=== PATIENT | female | born 1950 | race Caucasian/White ===

== ENCOUNTER 2017-06-14 17:13 | Inpatient (IN) ==
[2017-06-14] MEDS ORDERED: Albuterol 2.5 MG/3 ML NEBULIZER IH ONE (17:30)
[2017-06-14] MEDS ORDERED: methylPREDNISolone 125 MG/2 ML VIAL IVP ONE (17:30)
--- NOTE | 2017-06-14 17:37 | Emergency Department Note ---
Disposition Clinical Impression: Anemia, Congestive heart failure Disposition: Admitted As Inpatient Condition: Fair SOB HPI - General Chief Complaint: ED Shortness of Breath/Dyspnea Stated Complaint: dyspnea Time Seen by Provider: 06/14/17 17:22 Source: patient, EMS Mode of arrival: EMS Limitations: no limitations Nursing Notes Reviewed: Yes Vital Signs Reviewed: Yes - History of Present Illness 66-year-old female since for evaluation of shortness of breath. Patient over the last 2-3 weeks is developing increasing shortness of breath. She has had a productive cough of green sputum. She complains of mild anterior chest pain. She denies any fever or chills. She states no leg swelling. She does use a breathing machine at home. She does not require oxygen. She does not require BiPAP or CPAP. She is unsure of most of her medical problems or her medications. - Related Data Home Medications Medication Instructions Recorded Confirmed Albuterol Neb [AccuNeb] 0.63 mg IH Q4HR PRN 12/03/15 06/14/17 Albuterol Sulfate [Proair Hfa] 2 puff IH Q4HR PRN 12/03/15 06/14/17 Baclofen 10 mg PO TID PRN 12/03/15 06/14/17 Folic Acid 1 mg PO DAILY 12/03/15 06/14/17 Furosemide [Lasix] 40 mg PO DAILY PRN 12/03/15 06/14/17 Gabapentin [Neurontin] 600 mg PO HS 12/03/15 06/14/17 Insulin Glargine,Hum.rec.anlog 100 unit SQ BID 12/03/15 06/14/17 [Lantus Solostar] Metoprolol Tartrate [Lopressor] 12.5 mg PO BID 12/03/15 06/14/17 Nitroglycerin [Nitrostat] 0.4 mg SL PRN PRN 12/03/15 06/14/17 Omeprazole [PriLOSEC] 20 mg PO DAILY 12/03/15 06/14/17 metFORMIN [Glucophage] 1,000 mg PO BIDWM 12/03/15 06/14/17 Budesonide/Formoterol 160/4.5 2 puff IH BIDR 12/04/15 06/14/17 [Symbicort 160/4.5] Docusate [Colace] 100 mg PO QID PRN 03/24/16 06/14/17 Insulin LISPRO [HumaLOG] 0 units SQ TIDAC 03/24/16 06/14/17 Ferrous Gluconate 324 mg PO BID 06/14/17 06/14/17 Lisinopril [Zestril] 20 mg PO DAILY 06/14/17 06/14/17 Magnesium Oxide 500 mg PO DAILY 06/14/17 06/14/17 Previous Rx's Medication Instructions Recorded Diltiazem CD (24hr) [Cardizem CD] 180 mg PO BID cap.er.24h 12/09/15 Ergocalciferol (VITAMIN D2) 50,000 unit PO QWEEK capsule 12/09/15 [Drisdol (50,000 Unit)] Apixaban [Eliquis] 5 mg PO BID #60 tablet 03/28/16 Allergies Allergy/AdvReac Type Severity Reaction Status Date / Time ciprofloxacin Allergy Hives Verified 06/14/17 17:42 iodine Allergy See Verified 06/14/17 17:42 Comments promethazine [From Phenergan] Allergy See Verified 06/14/17 17:42 Comments Sulfa (Sulfonamide Allergy See Verified 06/14/17 17:42 Antibiotics) Comments walnut Allergy See Verified 06/14/17 17:42 Comments seafood Allergy See Uncoded 12/03/15 15:44 Comments Review of Systems: Constitutional: [Negative for fever and chills.] HENT: [Negative for congestion.] Eyes: [Negative for discharge.] Respiratory: See history of present illness Cardiovascular: See history of present illness Gastrointestinal: [Negative for nausea, vomiting, abdominal pain and diarrhea.] Endocrine: [Negative for excessive thirst,urination] Genitourinary: [Negative for dysuria and frequency.] Musculoskeletal: [Negative for myalgias and arthralgias.] Skin: [Negative for rash.] Neurological: [Negative for dizziness, localized weakness and headaches.] Psychiatric/Behavioral: [Negative for nervous/anxious.] All other systems reviewed and are negative. Past Medical History - Past Medical History Attestation: Yes The following information was validated with the patient. 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 . The patient appears symptomatic, mild to moderately ill. HENT: Head: Normocephalic and atraumatic. Right Ear: External ear normal. Left Ear: External ear normal. Nose: Nose normal. Mouth/Throat: Oropharynx is clear and mucous membranes show mild dehydration Eyes: Conjunctivae and EOM are normal. Pupils are equal, round, and reactive to light. Right eye exhibits [no] discharge. Left eye exhibits [no] discharge. Neck: Trachea is midline, normal range of motion and [phonation normal]. Neck supple. Cardiovascular: [Regular rhythm], S1 normal, S2 normal, normal heart sounds and intact distal pulses. Exam reveals no gallop and no friction rub. No murmur heard. [Capillary refill is brisk.] [Peripheral pulses are 2+] Pulmonary/Chest: Effort increased No stridor. Mild tachypnea. Mild respiratory distress. There are [no] decreased breath sounds. Diffuse rhonchi heard throughout all lung valle with few faint wheezes. There are no obvious rales. Abdominal: Soft. [Bowel sounds are normal]. There exhibits [no] distension and [no] mass. There is no hepatosplenomegaly. There is [no tenderness], [no] CVA tenderness. There is [no rigidity, no rebound, no guarding]. Musculoskeletal: Normal range of motion of uninvolved extremities. There exhibits [no edema]. [ ] Neurological: Patient is alert. Patient displays no atrophy and no tremor. No cranial nerve deficit and exhibits normal muscle tone. Coordination normal grossly. Skin: Skin is warm and dry. No erythema. No rash noted. Psychiatric: Patient has a depressed mood and affect. Course Course Narrative: Patient feels improved after second breathing treatment. Patient was discovered to have significant anemia. Chest x-ray shows mild heart failure. Discussed the case with Dr. Najera her primary care physician and he agrees with admission for IV blood transfusion Vital Signs Temperature 99.0 F 06/14/17 17:25 Pulse Rate 95 06/14/17 17:25 Respiratory Rate 26 06/14/17 17:25 Blood Pressure 128/46 06/14/17 17:25 O2 Sat by Pulse Oximetry 92 06/14/17 17:25 Temperature 99.0 F 06/14/17 17:25 Pulse Rate 97 06/14/17 18:40 Respiratory Rate 24 06/14/17 18:40 Blood Pressure 144/70 06/14/17 18:40 O2 Sat by Pulse Oximetry 98 06/14/17 18:40 Oxygen Delivery Oxygen Delivery Nasal Cannula Shortness of Breath/Dyspnea - MDM Narrative Medical decision making narrative: PULMONARY EMBOLISM, PULMONARY EDEMA, PNEUMONIA, PNEUMOTHORAX, STATUS ASTHMATICUS , ACUTE RESPIRATORY FAILURE, PLEURAL EFFUSION, HEMOTHORAX, OR ACUTE CORONARY SYNDROME. - Lab Data Lab results reviewed: Yes I reviewed the patient's lab results. Result diagrams: 06/14/17 17:30 06/14/17 17:30 Lab Results 06/14/17 06/14/17 06/14/17 Range/Units 17:25 17:30 17:30 WBC 16.4 H (4.3-11.1) K/mcL RBC 2.23 L (3.82-4.97) M/mcL Hgb 5.4 L* (11.5-15.4) g/dL Hct 19.8 L (35.3-44.9) % MCV 88.8 (83.0-100.0) fL MCH 24.2 L (28.0-33.3) pg MCHC 27.3 L (31.6-35.5) g/dL RDW 19.4 H (11.5-14.5) % Plt Count 221 (140-400) K/mcL MPV 12.9 H (9.4-12.4) fL Immature Gran % 1.1 (0-4) % Seg Neutrophils % 86.2 % Lymphocytes % 5.7 % Monocytes % 5.6 % Eosinophils % 1.1 % Basophils % 0.3 % Neutrophils # 14.1 H (1.6-8.9) K/mcL Lymphocytes # 0.9 (0.6-4.6) K/mcL Monocytes # 0.9 (0.0-1.3) K/mcL Eosinophils # 0.2 (0.0-0.6) K/mcL Basophils # 0.1 (0.0-0.2) K/mcL Nucleated RBCs/100 WBC 0.2 H (0) /100 WBC PT 21.0 H (9.4-12.1) Seconds INR 1.9 APTT 33.5 (26.0-36.0) Seconds VBG pH (7.32-7.42) pH Units VBG pCO2 (41-51) mmHg VBG pO2 (25-50) mmHg VBG HCO3 (21-27) mEq/L Sodium (136-145) mEq/L Potassium (3.5-4.5) mEq/L Chloride (98-109) mEq/L Carbon Dioxide (19-29) mEq/L BUN (7-20) mg/dL Creatinine (0.57-1.11) mg/dL Est GFR ( Amer) (> 60) Est GFR (Non-Af Amer) (> 60) BUN/Creatinine Ratio (6-26) Glucose (70-99) mg/dL POC Glucose 279 H (58-89) Calculated Osmolality (280-300) Lactic Acid (0.5-2.2) mmol/L Calcium (8.6-10.8) mg/dL Total Bilirubin (0.2-1.2) mg/dL Direct Bilirubin (0.0-0.5) mg/dL Indirect Bilirubin (0.0-1.2) mg/dL AST (5-34) Units/L ALT (0-55) Units/L Alkaline Phosphatase (38-126) Units/L Troponin I (0-0.03) ng/mL B-Natriuretic Peptide (0-100) pg/mL Serum Total Protein (6.0-8.3) g/dL Albumin (3.5-5.0) g/dL Globulin (2.4-3.5) g/dL Albumin/Globulin Ratio (1.1-2.2) 06/14/17 06/14/17 06/14/17 Range/Units 17:30 17:30 17:30 WBC (4.3-11.1) K/mcL RBC (3.82-4.97) M/mcL Hgb (11.5-15.4) g/dL Hct (35.3-44.9) % MCV (83.0-100.0) fL MCH (28.0-33.3) pg MCHC (31.6-35.5) g/dL RDW (11.5-14.5) % Plt Count (140-400) K/mcL MPV (9.4-12.4) fL Immature Gran % (0-4) % Seg Neutrophils % % Lymphocytes % % Monocytes % % Eosinophils % % Basophils % % Neutrophils # (1.6-8.9) K/mcL Lymphocytes # (0.6-4.6) K/mcL Monocytes # (0.0-1.3) K/mcL Eosinophils # (0.0-0.6) K/mcL Basophils # (0.0-0.2) K/mcL Nucleated RBCs/100 WBC (0) /100 WBC PT (9.4-12.1) Seconds INR APTT (26.0-36.0) Seconds VBG pH (7.32-7.42) pH Units VBG pCO2 (41-51) mmHg VBG pO2 (25-50) mmHg VBG HCO3 (21-27) mEq/L Sodium 136 (136-145) mEq/L Potassium 4.5 (3.5-4.5) mEq/L Chloride 101 (98-109) mEq/L Carbon Dioxide 27 (19-29) mEq/L BUN 18 (7-20) mg/dL Creatinine 1.03 (0.57-1.11) mg/dL Est GFR ( Amer) > 60 (> 60) Est GFR (Non-Af Amer) 53 L (> 60) BUN/Creatinine Ratio 17 (6-26) Glucose 268 H (70-99) mg/dL POC Glucose (58-89) Calculated Osmolality 293 (280-300) Lactic Acid 3.8 H (0.5-2.2) mmol/L Calcium 8.9 (8.6-10.8) mg/dL Total Bilirubin 1.0 (0.2-1.2) mg/dL Direct Bilirubin 0.5 (0.0-0.5) mg/dL Indirect Bilirubin 0.5 (0.0-1.2) mg/dL AST 19 (5-34) Units/L ALT 13 (0-55) Units/L Alkaline Phosphatase 81 (38-126) Units/L Troponin I 0.00 (0-0.03) ng/mL B-Natriuretic Peptide (0-100) pg/mL Serum Total Protein 8.0 (6.0-8.3) g/dL Albumin 3.0 L (3.5-5.0) g/dL Globulin 5.0 H (2.4-3.5) g/dL Albumin/Globulin Ratio 0.6 L (1.1-2.2) 06/14/17 06/14/17 Range/Units 17:30 17:59 WBC (4.3-11.1) K/mcL RBC (3.82-4.97) M/mcL Hgb (11.5-15.4) g/dL Hct (35.3-44.9) % MCV (83.0-100.0) fL MCH (28.0-33.3) pg MCHC (31.6-35.5) g/dL RDW (11.5-14.5) % Plt Count (140-400) K/mcL MPV (9.4-12.4) fL Immature Gran % (0-4) % Seg Neutrophils % % Lymphocytes % % Monocytes % % Eosinophils % % Basophils % % Neutrophils # (1.6-8.9) K/mcL Lymphocytes # (0.6-4.6) K/mcL Monocytes # (0.0-1.3) K/mcL Eosinophils # (0.0-0.6) K/mcL Basophils # (0.0-0.2) K/mcL Nucleated RBCs/100 WBC (0) /100 WBC PT (9.4-12.1) Seconds INR APTT (26.0-36.0) Seconds VBG pH 7.45 H (7.32-7.42) pH Units VBG pCO2 33 L (41-51) mmHg VBG pO2 35 (25-50) mmHg VBG HCO3 23 (21-27) mEq/L Sodium (136-145) mEq/L Potassium (3.5-4.5) mEq/L Chloride (98-109) mEq/L Carbon Dioxide (19-29) mEq/L BUN (7-20) mg/dL Creatinine (0.57-1.11) mg/dL Est GFR ( Amer) (> 60) Est GFR (Non-Af Amer) (> 60) BUN/Creatinine Ratio (6-26) Glucose (70-99) mg/dL POC Glucose (58-89) Calculated Osmolality (280-300) Lactic Acid (0.5-2.2) mmol/L Calcium (8.6-10.8) mg/dL Total Bilirubin (0.2-1.2) mg/dL Direct Bilirubin (0.0-0.5) mg/dL Indirect Bilirubin (0.0-1.2) mg/dL AST (5-34) Units/L ALT (0-55) Units/L Alkaline Phosphatase (38-126) Units/L Troponin I (0-0.03) ng/mL B-Natriuretic Peptide 373 H (0-100) pg/mL Serum Total Protein (6.0-8.3) g/dL Albumin (3.5-5.0) g/dL Globulin (2.4-3.5) g/dL Albumin/Globulin Ratio (1.1-2.2) - Radiology Data Radiology results reviewed: Yes I reviewed the patient's radiology results. XR/XR chest 1V portable IMPRESSION: Cardiomegaly with findings of acute congestive heart failure. - EKG Data EKG attestation: Yes I reviewed and interpreted this EKG. EKG shows normal: Reports: sinus rhythm, axis, intervals, QRS complexes, ST-T waves Rate: Reports: tachycardia
[2017-06-14 17:43] LABS: Basophils # 0.1 K/mcL (0.0-0.2); Basophils % 0.3 %; Eosinophils # 0.2 K/mcL (0.0-0.6); Eosinophils % 1.1 %; Hematocrit 19.8 % (35.3-44.9); Immature Granulocytes % 1.1 % (0-4); Lymphocytes # 0.9 K/mcL (0.6-4.6); Lymphocytes % 5.7 %; Mean Corpuscular HGB Conc 27.3 g/dL (31.6-35.5); Mean Corpuscular Hemoglobin 24.2 pg (28.0-33.3); Mean Corpuscular Volume 88.8 fL (83.0-100.0); Mean Platelet Volume 12.9 fL (9.4-12.4); Monocytes # 0.9 K/mcL (0.0-1.3); Monocytes % 5.6 %; Neutrophils # 14.1 K/mcL (1.6-8.9); Nucleated Red Blood Cells 0.2 /100 WBC (0); Platelet Count 221 K/mcL (140-400); Red Blood Count 2.23 M/mcL (3.82-4.97); Red Cell Distribution Width 19.4 % (11.5-14.5); Segmented Neutrophils % 86.2 %
[2017-06-14 17:45] LABS: Hemoglobin 5.4 g/dL (11.5-15.4)
[2017-06-14 17:56] LABS: INR 1.9
[2017-06-14 17:58] LABS: Activated Partial Thrombo Time 33.5 Seconds (26.0-36.0); Alanine Aminotransferase 13 Units/L (0-55); Albumin/Globulin Ratio 0.6 (1.1-2.2); Alkaline Phosphatase 81 Units/L (38-126); Aspartate Amino Transferase 19 Units/L (5-34); BUN/Creatinine Ratio 17 (6-26); Bilirubin,Direct 0.5 mg/dL (0.0-0.5); Bilirubin,Indirect 0.5 mg/dL (0.0-1.2); Blood Urea Nitrogen 18 mg/dL (7-20); Calcium 8.9 mg/dL (8.6-10.8); Carbon Dioxide 27 mEq/L (19-29); Chloride 101 mEq/L (98-109); Glucose 268 mg/dL (70-99); Osmolality,Calculated 293 (280-300); Potassium 4.5 mEq/L (3.5-4.5); Sodium 136 mEq/L (136-145); eGFR For African Americans > 60 (> 60); eGFR For Non-African Americans 53 (> 60)
[2017-06-14 18:17] LABS: VBG HCO3 23 mEq/L (21-27); VBG PCO2 33 mmHg (41-51); VBG PH 7.45 pH Units (7.32-7.42); VBG PO2 35 mmHg (25-50)
[2017-06-14] MEDS ORDERED: Dextrose Gel 15 GM PO PRN ×2 (19:50)
[2017-06-14] MEDS ORDERED: Baclofen 10 MG TABLET PO PRN (19:50)
[2017-06-14] MEDS ORDERED: Albuterol Neb 0.63 MG/3 ML VIAL IH PRN (19:50)
[2017-06-14] MEDS ORDERED: D5% in Water 1,000 ML IVC PRN (19:50)
[2017-06-14] MEDS ORDERED: Naloxone 0.4 MG/ML INJ IVP PRN (19:50)
[2017-06-14] MEDS ORDERED: Furosemide 40 MG TABLET PO PRN (19:50)
[2017-06-14] MEDS ORDERED: cefTRIAXone 1,000 MG in Water for inj. (sterile) 10 ML IVPB ONE (19:56)
[2017-06-14] MEDS ORDERED: Insulin DETEMIR 100 UNIT/ML X5UNITS SQ SCH (21:00)
[2017-06-14] MEDS ORDERED: Diltiazem CD (24hr) 180 MG CAPSULE PO SCH (21:00)
[2017-06-14] MEDS ORDERED: Famotidine 20 MG/2 ML VIAL IVP SCH (21:00)
[2017-06-14] MEDS ORDERED: Furosemide 40 MG/4 ML VIAL IVP ONE (22:10)
[2017-06-14] MEDS ORDERED: Loratadine 10 MG TABLET PO PRN (22:21)
[2017-06-14] MEDS ORDERED: Insulin DETEMIR 100 UNIT/ML per UNIT SQ ONE (22:45)
[2017-06-14] MEDS: Gabapentin 300 MG CAPSULE PO SCH (23:05)
[2017-06-14] MEDS: *HR* LORazepam 0.5 MG TABLET PO PRN (23:05)
[2017-06-14] MEDS: Budesonide/Formoterol 160/4.5 MDI IH SCH (23:07)
[2017-06-14] MEDS: APIXABAN 5 MG TABLET PO SCH (23:09)
[2017-06-14] MEDS: Insulin LISPRO 300 UNITS/3 ML VIAL SQ SCH (23:10)
[2017-06-15] MEDS ORDERED: Insulin LISPRO 300 UNITS/3 ML VIAL SQ SCH
[2017-06-15 05:17] LABS: Hematocrit 17.5 % (35.3-44.9); Mean Corpuscular Hemoglobin 24.4 pg (28.0-33.3); Mean Corpuscular Volume 87.1 fL (83.0-100.0); Mean Platelet Volume 12.6 fL (9.4-12.4); Platelet Count 188 K/mcL (140-400); Red Blood Count 2.01 M/mcL (3.82-4.97); Red Cell Distribution Width 19.1 % (11.5-14.5)
[2017-06-15 05:23] LABS: Hemoglobin 4.9 g/dL (11.5-15.4)
--- NOTE | 2017-06-15 07:01 | Internal Med History&Physical ---
Date of Encounter: 06/15/17 Time of Encounter: 06:54 Assessment and Plan (1) Anemia Current visit: Yes Status: Acute Patient was admitted with life-threateningly low hemoglobin of 5.4 in the ER and later 4.9 gms. She has a history of iron deficiency anemia and was to have consultation with Dr. Winters for endoscopy, apparently they showed up on the wrong day to see him. For the past 2-3 weeks she has been having increased shortness of breath and cough. Does not appear to be an acute hemorrhage, likely slow bleed and got to the point where she became symptomatic. This is likely contributing to her lactic acidosis and congestive heart failure. There has been a delay in getting blood transfusion as she had 2 prior antibodies, now she she apparently has a new antibody to her blood slowing down the process. At this point it is likely more efficient and quicker to keep her here and have blood delivered than to have her be transferred to another hospital and start the process again. Her blood pressure has been very good. She is not having any acute angina. Her BNP is in the 300 range. At this time we are awaiting blood for transfusion. I anticipate is going to take 3-4 units total. We will still plan on her having endoscopy at a later date when she is stable. Currently no signs of active hemorrhage. Surprisingly her vitals are stable. Qualifiers: Anemia type: iron deficiency Iron deficiency anemia type: unspecified iron deficiency Qualified Code(s): D50.9 - Iron deficiency anemia, unspecified (2) Congestive heart failure Current visit: Yes Status: Acute Her chest x-ray is consistent with acute congestive heart failure and mildly elevated BNP. Her last echocardiogram of a year ago showed 65% ejection fraction. This is likely related to her life-threatening anemia. Her troponin is negative. She is not having any acute angina. She is on a cardiac cath tech. She was given a dose of Lasix in the ER. We will maintain her usual oral Lasix that she uses for her dependent edema. Consider repeat echocardiogram after her anemia has been rectified Qualifiers: Congestive heart failure type: unspecified congestive heart failure type Congestive heart failure chronicity: acute Qualified Code(s): I50.9 - Heart failure, unspecified (3) Lactic acidosis Current visit: Yes Status: Acute Acute lactic acidosis. Very low likelihood that she is septic, likely this is from poor perfusion from a very low hemoglobin. We will follow her clinically. Right now she has no hypotension, no significant tachycardia, she is not as ill appearing as one would expect. I suspect this will resolve as we replace her blood. (4) Acute bronchitis Current visit: Yes Status: Acute She is having cough, congestion, sputum production and rhonchi. Likely she has acute bronchitis with exacerbation of COPD. She was started on Rocephin in the ER as well as a dose of Solu-Medrol. Qualifiers: Bronchitis organism: unspecified organism Qualified Code(s): J20.9 - Acute bronchitis, unspecified (5) History of stroke Current visit: Yes Status: Chronic She has a history of a previous CVA with right hemiplegia. She was on Plavix. She is now on Eliquis because of paroxysmal atrial fibrillation episode in the past. At home she basically is in a reclining chair and bedside commode. In the office she comes in via wheelchair. She does not have much motivation to have physical therapy. No signs of recurrence of CVA. (6) Paroxysmal atrial fibrillation Current visit: Yes Status: Chronic She has a history of having had atrial fibrillation. To our knowledge she has been in sinus rhythm for a while. She has been on Eliquis because of atrial fibrillation history and previous CVA. No angina noted. She has been on the monitor and showing sinus rhythm (7) DM2 (diabetes mellitus, type 2) Current visit: Yes Status: Chronic Chronic history of diabetes. She takes very large amount of insulin. Her glycohemoglobin is under good control with glycohemoglobin 6.3% in April. We need to be sure she does not get hypoglycemic as she will have a better diet here than at home. Qualifiers: Diabetes mellitus complication status: without complication Diabetes mellitus long term care phlebotomist insulin use: with long term care phlebotomist use Qualified Code(s): E11.9 - Type 2 diabetes mellitus without complications; Z79.4 - detention (current) use of insulin (8) HTN (hypertension) Current visit: Yes Status: Chronic She is a long-standing history of hypertension. Her blood pressures are basically normal. Considering her anemia, her blood pressure is very stable. We will continue her current medication. Qualifiers: Hypertension type: essential hypertension Qualified Code(s): I10 - Essential (primary) hypertension (9) COPD (chronic obstructive pulmonary disease) Current visit: Yes Status: Chronic Chronic history of COPD, previous cigarette smoker. Uses inhalers at home. Typically not requiring oxygen at home, with her current status she is requiring oxygen at 3 L to maintain saturations in the 90s. She is oxygen and nebulizer treatments ordered. She was given 1 dose of steroids in the ER. Qualifiers: COPD type: emphysema Emphysema type: unspecified Qualified Code(s): J43.9 - Emphysema, unspecified Internal Medicine - H&P: HPI Chief complaint: I have been getting short of breath for the past 2 or 3 weeks Admitted From: Emergency Dept Plans for Post Hospital Care: Home History of present illness: Ms. Light is a 66 year old female with known history of insulin-dependent diabetes mellitus, paroxysmal atrial fibrillation and is anticoagulated, previous CVA with right-sided weakness, and anemia is admitted via the ER with a history of bronchitis and anemia with a hemoglobin of 5.4. Apparently she has been having shortness of breath past 2 or 3 weeks as well as a cough. She has refused to come to the emergency room despite family urging, home health nursing urging her, and our office urging her yesterday. Apparently her daughter convinced her to be brought in for evaluation. She has been having the shortness of breath, even walking 1 or 2 steps to the bedside commode makes her short of breath. She been coughing for 2-3 weeks with "a little bit" of sputum which is green. No fevers or chills per history. When I asked about chest pain, "not bad" and it is "light" and she points to the left parasternal area. No neck pain, jaw pain, shoulder pain or left arm pain noted. She states the chest pain episodes are short-lived, she is not sure , maybe lasting up to an hour. Regarding her blood sugar she states they are ranging 90-200. She takes large amount of long-acting insulin as well as short-acting per sliding scale. Her last glycohemoglobin as tested in April was 6.3% Since she has been admitted from the emergency room she thinks she is feeling better. She is having less cough and shortness of breath. She states her aches and pains are better. She is hungry for breakfast. She denies any chest pains, diaphoresis, chest pressure or tachycardia. She was given a gram of Rocephin last night to cover bronchitis and she was given a dose of IV Lasix for congestive heart failure. We are still awaiting blood for transfusion. She previously had 2 antibodies, and now she probably has a new antibody and difficult to safely crossmatch and transfuse. We are awaiting blood from [facility] at the present time. Past Med Surg Social Fam HX - Past Medical History Medical history: arthritis, atrial fibrillation (Previous atrial fibrillation and anticoagulated with Eliquis), COPD, CVA (Previous CVA with residual right- sided weakness and gait abnormality), diabetes, GERD, hypertension, venous stasis, other (History of chronic anemia, iron deficiency and GI consultation was arranged but she showed up on the wrong day. 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 Typically she sits in her chair all day long. She has a bedside commode. When she comes in the office she is in a wheelchair.) - Family History Brother History Unknown: Yes Hx Family Cardiac Disorders: Yes Hx Family Cancer: Yes (3 brothers one with brain tumor, pancreatic cancer, and the third with unkn) Father History Unknown: Yes Living Status: Hx Family Cardiac Disorders: Yes (Heart disease) Sister History Unknown: Yes Hx Family Neuromuscular Disorders: Yes (MS and CVA) Mother History Unknown: Yes Living Status: Hx Family Cardiac Disorders: Yes (Had a stroke) Hx Family Cancer: Yes (Breast) Hx Family Neuromuscular Disorders: Yes (CVA) Internal Medicine - H&P: Meds Albuterol Neb [AccuNeb] 0.63 mg IH Q4HR PRN 12/03/15 [History] Albuterol Sulfate [Proair Hfa] 2 puff IH Q4HR PRN 12/03/15 [History] Baclofen 10 mg PO TID PRN 12/03/15 [History] Folic Acid 1 mg PO DAILY 12/03/15 [History] Gabapentin [Neurontin] 600 mg PO HS 12/03/15 [History] Metoprolol Tartrate [Lopressor] 12.5 mg PO BID 12/03/15 [History] Nitroglycerin [Nitrostat] 0.4 mg SL PRN PRN 12/03/15 [History] Omeprazole [PriLOSEC] 20 mg PO DAILY 12/03/15 [History] metFORMIN [Glucophage] 1,000 mg PO BIDWM 12/03/15 [History] Budesonide/Formoterol 160/4.5 [Symbicort 160/4.5] 2 puff IH BIDR 12/04/15 [ History] Ergocalciferol (VITAMIN D2) [Drisdol (50,000 Unit)] 50,000 unit PO QWEEK capsule 12/09/15 [Rx] Insulin LISPRO [HumaLOG] 0 units SQ TIDAC 03/24/16 [History] Apixaban [Eliquis] 5 mg PO BID #60 tablet 03/28/16 [Rx] Ferrous Gluconate 324 mg PO BID 06/14/17 [History] Lisinopril [Zestril] 20 mg PO DAILY 06/14/17 [History] Magnesium Oxide 400 mg PO DAILY 06/14/17 [History] Clopidogrel [Plavix] 75 mg PO DAILY 06/15/17 [History] Diltiazem CD (24hr) [Cardizem CD] 180 mg PO DAILY 06/15/17 [History] Docusate [Colace] 100 mg PO DAILY 06/15/17 [History] FLUoxetine HCl [PROzac] 20 mg PO DAILY 06/15/17 [History] Furosemide [Lasix] 40 mg PO DAILY 06/15/17 [History] Insulin DETEMIR [Levemir] 50 unit SQ HS 06/15/17 [History] Insulin DETEMIR [Levemir] 100 unit SQ 0800 06/15/17 [History] LORazepam [Ativan] 0.5 mg PO Q6HR PRN 06/15/17 [History] Loratadine [Claritin] 10 mg PO DAILY PRN 06/15/17 [History] 3 Allergy/AdvReac Type Severity Reaction Status Date / Time ciprofloxacin Allergy Hives Verified 06/14/17 21:13 iodine Allergy See Verified 06/14/17 21:13 Comments promethazine [From Phenergan] Allergy See Verified 06/14/17 21:13 Comments Sulfa (Sulfonamide Allergy See Verified 06/14/17 21:13 Antibiotics) Comments walnut Allergy See Verified 06/14/17 21:13 Comments seafood Allergy See Uncoded 06/14/17 21:13 Comments - Constitutional Constitutional: fatigue, no chills, no fever(s) - EENT Eyes: no change in vision Ears: no ear discharge, no ear pain Nose, mouth and throat: dry mouth, no neck pain, no sore throat - Cardiovascular Cardiovascular ROS IM: dyspnea on exertion, no chest pain, no edema, no irregular heart rhythm, no orthopnea, no palpitations, no syncope - Respiratory Respiratory: cough (She sometimes has yellow sputum production.), dyspnea, change in phlegm color (Sometimes it is yellow.), no hemoptysis, no pain on inspiration - Gastrointestinal Gastrointestinal: constipation (She states she either has constipation or diarrhea.), diarrhea (She states she has either diarrhea or constipation.), no abdominal pain, no hematemesis, no hematochezia, no melena, no nausea, no vomiting - Genitourinary Genitourinary: no dysuria, no urinary frequency - Musculoskeletal Musculoskeletal ROS IM: back pain, muscle weakness (She is status post CVA and has some mild right hemiplegia) - Integumentary Integumentary IM: rash (She has a rash under each breast.) - Neurological Neurological ROS: weakness (History of right-sided weakness in arm and leg and gait abnormality from previous CVA. ) - Constitutional Vitals: Temp Pulse Resp BP Pulse Ox 97.5 F L 85 17 122/78 91 06/15/17 04:00 06/15/17 04:00 06/15/17 04:00 06/15/17 04:00 06/15/17 04:00 General appearance: Present: mild distress (She appears a bit short of breath at times. Resting comfortably with skin warm and dry), A&O X 3, morbidly obese. Absent: answers questions appropriately (She does not know her medications very well.) - Eye Eye exam: Absent: scleral icterus, conjuntiva pink (Conjunctiva very pale) Pupils: Present: PERRL - ENT ENT exam: Present: mucous membranes dry, TM's normal bilaterally. Absent: normal oropharynx (She is edentulous and mucous membranes are dry) - Neck Neck exam general surgery: Absent: lymphadenopathy, tenderness, nuchal rigidity , thyromegaly - Respiratory Respiratory exam: Present: decreased breath sounds (Slight end-expiratory wheezes at the bases. Few atelectatic type crackles at bases), respiratory distress (At times she seems slightly short of breath but no air hunger.) - Cardiovascular Cardiovascular exam: Present: RRR, +S1, +S2, systolic murmur (2/6 systolic murmur). Absent: gallop - GI/Abdominal GI/Abdominal exam: Present: soft, no peritoneal signs. Absent: guarding, mass, tenderness - Extremities Exam Additional comments: Mild edema of lower extremities. She has healing scabbed excoriated areas on the pretibial areas. Feet are warm and dry excellent dorsalis pedis pulses - Neurological Exam Neurological exam: Present: alert, oriented X3, strengths equal and symetr throughout (As tested in bed. I did not try to get her to stand up.) - Skin Additional comments: Intertriginous dermatitis under her breasts Internal Med - H&P Results - Labs CBC & Chem 7: 06/15/17 18:10 06/15/17 12:56 Labs: Lab work has been reviewed 06/15/17 Range/Units 04:58 WBC 15.2 H (4.3-11.1) K/mcL Hgb 4.9 L* (11.5-15.4) g/dL Hct 17.5 L (35.3-44.9) % Plt Count 188 (140-400) K/mcL - VTE Reasons for not Prescribing Prophylaxis: Medical contraindication
[2017-06-15] MEDS: APIXABAN 5 MG TABLET PO SCH (08:09)
[2017-06-15] MEDS: Diltiazem CD (24hr) 180 MG CAPSULE PO SCH (08:13)
[2017-06-15] MEDS: Nystatin POWDER 30 GM BOTTLE TP SCH ×2 (08:13→13:47)
[2017-06-15] MEDS: Lisinopril 20 MG TABLET PO SCH (08:13)
[2017-06-15] MEDS: Magnesium Oxide 400 MG TABLET PO SCH (08:14)
[2017-06-15] MEDS: FLUoxetine 20 MG CAPSULE PO SCH (08:14)
[2017-06-15] MEDS: *HR* Metformin 500 MG TABLET PO SCH ×2 (08:14→17:20)
[2017-06-15] MEDS: Folic Acid 1 MG TABLET PO SCH (08:14)
[2017-06-15] MEDS: Furosemide 40 MG TABLET PO SCH (08:14)
[2017-06-15] MEDS: Insulin LISPRO 300 UNITS/3 ML VIAL SQ SCH ×4 (08:15→20:12)
[2017-06-15] MEDS: Budesonide/Formoterol 160/4.5 MDI IH SCH (08:16)
[2017-06-15] MEDS ORDERED: 0.9 % Sodium Chloride 500 ML ONE (09:10)
[2017-06-15] MEDS: Ondansetron 4 MG/2 ML VIAL IVP PRN ×3 (09:17→15:41)
[2017-06-15] MEDS: Insulin DETEMIR 100 UNIT/ML X5UNITS SQ SCH (09:19)
[2017-06-15 13:10] LABS: Hematocrit 21.8 % (35.3-44.9); Hemoglobin 6.1 g/dL (11.5-15.4)
[2017-06-15 13:19] LABS: BUN/Creatinine Ratio 19 (6-26); Blood Urea Nitrogen 19 mg/dL (7-20); Calcium 8.8 mg/dL (8.6-10.8); Carbon Dioxide 25 mEq/L (19-29); Chloride 102 mEq/L (98-109); Glucose 208 mg/dL (70-99); Osmolality,Calculated 296 (280-300); Potassium 4.1 mEq/L (3.5-4.5); Sodium 139 mEq/L (136-145); eGFR For African Americans > 60 (> 60); eGFR For Non-African Americans 55 (> 60)
[2017-06-15] MEDS ORDERED: 0.9 % Sodium Chloride 250 ML ONE ×2 (14:04→23:18)
[2017-06-15 18:31] LABS: Hematocrit 22.7 % (35.3-44.9); Hemoglobin 6.7 g/dL (11.5-15.4)
--- NOTE | 2017-06-15 19:00 | Event Note ---
Date of Encounter: 06/15/17 Time of Encounter: 19:00 I reevaluated the patient this evening. She states she thinks that she is feeling better. She denies any angina or breathing problem. She still has a little bit of sputum production. She denies any abdominal pain. At this point she has received 2 units of blood and hemoglobin has gone from a level 4.9 to 6.1 after 1 unit and 6.7 after the second unit. Her lactate peaked at 4.4 and is now 3.1. I suspect it was all from hypoperfusion from her severe anemia. Her blood pressure has remained stable through the day. She is still requiring oxygen at 3 L per nasal cannula. She has eaten well today. She does not look as ill as one would expect based on her numbers. At the present time she remains a full code as she has not thought about other alternatives.
[2017-06-15] MEDS: Gabapentin 300 MG CAPSULE PO SCH (20:05)
[2017-06-15] MEDS ORDERED: Insulin DETEMIR 100 UNIT/ML X5UNITS SQ SCH (21:00)
[2017-06-15] MEDS: *HR* Dextrose 50 % in Water (Syg) 50 ML SYRINGE IVP PRN (21:34)
[2017-06-16] MEDS: APIXABAN 5 MG TABLET PO SCH ×3 (00:11→22:41)
[2017-06-16] MEDS: Budesonide/Formoterol 160/4.5 MDI IH SCH ×3 (00:11→21:26)
[2017-06-16] MEDS: Nystatin POWDER 30 GM BOTTLE TP SCH ×4 (02:35→21:33)
[2017-06-16] MEDS: *HR* Dextrose 50 % in Water (Syg) 50 ML SYRINGE IVP PRN (05:34)
[2017-06-16 05:54] LABS: Hematocrit 25.7 % (35.3-44.9); Hemoglobin 7.6 g/dL (11.5-15.4)
[2017-06-16] MEDS: Diltiazem CD (24hr) 180 MG CAPSULE PO SCH (08:44)
[2017-06-16] MEDS: FLUoxetine 20 MG CAPSULE PO SCH (08:44)
[2017-06-16] MEDS: Magnesium Oxide 400 MG TABLET PO SCH (08:45)
[2017-06-16] MEDS: Folic Acid 1 MG TABLET PO SCH (08:45)
[2017-06-16] MEDS: Lisinopril 20 MG TABLET PO SCH (08:45)
[2017-06-16] MEDS: Furosemide 40 MG TABLET PO SCH (08:46)
[2017-06-16] MEDS: Insulin LISPRO 300 UNITS/3 ML VIAL SQ SCH ×4 (08:46→21:27)
[2017-06-16] MEDS: Insulin DETEMIR 100 UNIT/ML X5UNITS SQ SCH ×2 (08:47→21:33)
--- NOTE | 2017-06-16 12:25 | Internal Med Progress Note ---
Date of Encounter: 06/16/17 Time of Encounter: 12:00 - Assessment and plan (1) Acute bronchitis Current Visit: Yes Status: Acute Assessment and plan: I she continues on Rocephin. She is afebrile. Probably a little worse than her baseline pulmonary status. She'll we'll see if she improves with antibiotics. She definitely has some wheezing today despite her aerosols. I'll give her some steroids. Qualifiers: Bronchitis organism: unspecified organism Qualified Code(s): J20.9 - Acute bronchitis, unspecified (2) Anemia Current Visit: Yes Status: Acute Assessment and plan: After 3 units her hemoglobin is up to 7.6 which is at our short-term goal for her per my conversation with Dr. Najera yesterday. We will follow her hemoglobin. Plan is for endoscopy but not emergently. Qualifiers: Anemia type: iron deficiency Iron deficiency anemia type: unspecified iron deficiency Qualified Code(s): D50.9 - Iron deficiency anemia, unspecified (3) Congestive heart failure Current Visit: Yes Status: Acute Assessment and plan: Continue current meds. Chest x-ray was read as acute CHF. On PO Lasix. Qualifiers: Congestive heart failure type: unspecified congestive heart failure type Congestive heart failure chronicity: acute Qualified Code(s): I50.9 - Heart failure, unspecified (4) Lactic acidosis Current Visit: Yes Status: Acute Assessment and plan: On Rocephin. Vitals and mental status are stable. (5) COPD (chronic obstructive pulmonary disease) Current Visit: Yes Status: Chronic Assessment and plan: Will add steroids for wheezing. Will follow blood sugars and volume status. Qualifiers: COPD type: emphysema Emphysema type: unspecified Qualified Code(s): J43.9 - Emphysema, unspecified (6) DM2 (diabetes mellitus, type 2) Current Visit: Yes Status: Chronic Assessment and plan: Has been hypoglycemic here on inpatient, may be due to dietary change. Starting steroids may increase her sugars. I'll cut her Levimir in half. Qualifiers: Diabetes mellitus complication status: without complication Diabetes mellitus correction insulin use: with buttermaker continuous churn use Qualified Code(s): E11.9 - Type 2 diabetes mellitus without complications; Z79.4 - terminal make up operator (current) use of insulin (7) HTN (hypertension) Current Visit: Yes Status: Chronic Assessment and plan: Has been at goal. Qualifiers: Hypertension type: essential hypertension Qualified Code(s): I10 - Essential (primary) hypertension - Time Spent With Patient Greater than 35 minutes - Subjective Interval history: She tells me that she is feeling a little better this morning. #PULMONARY/ CONGESTIVE HEART FAILURE She reports she still has some shortness of breath at rest. She states she has not been able to walk at home in 2 weeks. She doesn't feel she could get up and use a bedside commode. #ANEMIA she tells me she doesn' t think she's ever had anemia before. #REVIEW OF SYSTEMS she tells me that her appetite is okay and she particularly wants to eat her salad. Denies pain. - Constitutional Vitals: Temp Pulse Resp BP Pulse Ox 98.0 F 84 16 127/64 94 06/16/17 11:54 06/16/17 11:54 06/16/17 11:54 06/16/17 11:54 06/16/17 11:54 General appearance: Present: mild distress (She has notably increased respiratory effort with some pursing for expiration. She's not in distress as such.), A&O X 3, morbidly obese, pleasant, answers questions appropriately (She does not know her medications very well.) - Head Head exam: Present: atraumatic, normocephalic - Respiratory Respiratory exam: Present: CTAB, prolonged expiratory phase, rhonchi, wheezes ( She has diffuse wheezing with bilateral scattered rhonchi. Overall she's moving air fairly comfortably and has no problems with conversation.). Absent: accessory muscle use, rales - Cardiovascular Cardiovascular exam: Present: RRR, +S1, +S2. Absent: diastolic murmur, gallop, rubs, systolic murmur - GI/Abdominal GI/Abdominal exam: Present: soft, no peritoneal signs. Absent: distended, mass , tenderness - Extremities Exam Extremities exam: Present: warm. Absent: calf tenderness, cyanotic, pedal edema Internal Medicine: Result - Labs CBC & Chem 7: 06/16/17 05:10 06/15/17 12:56 Labs: Hemoglobin is up to 7.6 following a total of 3 units transfused. She had some hypoglycemia through the night down to the 40s, we held her insulin this morning she usually takes Levemir 100 the morning and 50 at night. Blood sugar right now at lunchtime is in the 160s. 06/15/17 06/15/17 06/16/17 Range/Units 12:56 18:10 05:10 Hgb 6.1 L 6.7 L 7.6 L (11.5-15.4) g/dL Hct 21.8 L 22.7 L 25.7 L (35.3-44.9) % BMP 06/15/17 12:56 Sodium 139 Potassium 4.1 Chloride 102 Carbon Dioxide 25 BUN 19 Creatinine 1.00 Glucose 208 H Calcium 8.8 - ABG Interpretation ABG results: PT/INR, D-dimer PT 21.0 Seconds (9.4-12.1) H 06/14/17 17:30 - VTE Reasons for not Prescribing Prophylaxis: Medical contraindication Consult Discharge Plan - Plan Referrals: Huang Najera MD [Primary Care Provider] -
[2017-06-16 15:03] LABS: Bilirubin,Urine Negative (Negative); Blood,Urine Negative (Negative); Clarity,Urine Clear (Clear); Color,Urine Yellow (Yellow); Glucose,Urine (UA) Normal (Normal); Ketones,Urine Negative (Negative); Leukocyte Esterase,Urine Negative (Negative); Nitrite,Urine Negative (Negative); Protein,Urine Negative (Neg-Trace); Specific Gravity,Urine 1.015 (1.010-1.025); Urobilinogen,Urine Normal (Normal)
[2017-06-16] MEDS: methylPREDNISolone 125 MG/2 ML VIAL IVP SCH (17:16)
[2017-06-16] MEDS: Gabapentin 300 MG CAPSULE PO SCH (21:25)
[2017-06-17 04:57] LABS: Basophils % 0.2 %; Eosinophils % 0.2 %; Hematocrit 25.3 % (35.3-44.9); Hemoglobin 7.6 g/dL (11.5-15.4); Immature Granulocytes % 1.4 % (0-4); Lymphocytes # 0.9 K/mcL (0.6-4.6); Lymphocytes % 6.5 %; Mean Corpuscular Hemoglobin 25.9 pg (28.0-33.3); Mean Corpuscular Volume 86.3 fL (83.0-100.0); Monocytes # 0.6 K/mcL (0.0-1.3); Monocytes % 4.4 %; Neutrophils # 11.6 K/mcL (1.6-8.9); Nucleated Red Blood Cells 0.2 /100 WBC (0); Platelet Count 196 K/mcL (140-400); Red Blood Count 2.93 M/mcL (3.82-4.97); Red Cell Distribution Width 17.3 % (11.5-14.5); Segmented Neutrophils % 87.3 %
[2017-06-17 05:21] LABS: BUN/Creatinine Ratio 23 (6-26); Blood Urea Nitrogen 19 mg/dL (7-20); Calcium 8.6 mg/dL (8.6-10.8); Carbon Dioxide 28 mEq/L (19-29); Chloride 101 mEq/L (98-109); Glucose 311 mg/dL (70-99); Osmolality,Calculated 296 (280-300); Potassium 4.6 mEq/L (3.5-4.5); Sodium 136 mEq/L (136-145); eGFR For African Americans > 60 (> 60); eGFR For Non-African Americans > 60 (> 60)
[2017-06-17] MEDS: methylPREDNISolone 125 MG/2 ML VIAL IVP SCH ×2 (06:12→18:21)
[2017-06-17] MEDS: FLUoxetine 20 MG CAPSULE PO SCH (08:49)
[2017-06-17] MEDS: Folic Acid 1 MG TABLET PO SCH (08:49)
[2017-06-17] MEDS: Diltiazem CD (24hr) 180 MG CAPSULE PO SCH (08:49)
[2017-06-17] MEDS: Magnesium Oxide 400 MG TABLET PO SCH (08:49)
[2017-06-17] MEDS: Furosemide 40 MG TABLET PO SCH (08:50)
[2017-06-17] MEDS: Nystatin POWDER 30 GM BOTTLE TP SCH ×3 (08:50→22:17)
[2017-06-17] MEDS: Insulin DETEMIR 100 UNIT/ML X5UNITS SQ SCH ×2 (08:50→21:58)
[2017-06-17] MEDS: Lisinopril 20 MG TABLET PO SCH (08:52)
[2017-06-17] MEDS: Budesonide/Formoterol 160/4.5 MDI IH SCH ×2 (08:52→22:19)
[2017-06-17] MEDS: Insulin LISPRO 300 UNITS/3 ML VIAL SQ SCH ×4 (08:58→22:00)
[2017-06-17] MEDS: Acetaminophen 325 MG TABLET PO PRN ×2 (11:28→15:21)
--- NOTE | 2017-06-17 13:26 | Internal Med Progress Note ---
Date of Encounter: 06/17/17 Time of Encounter: 13:15 - Assessment and plan (1) Acute bronchitis Current Visit: Yes Status: Acute Assessment and plan: Continues no Rocephin, wheezing resolved with Solumedrol. Qualifiers: Bronchitis organism: unspecified organism Qualified Code(s): J20.9 - Acute bronchitis, unspecified (2) Anemia Current Visit: Yes Status: Acute Assessment and plan: Her hemoglobin is stable at 7.6. We will continue as at present. Plan is for eventual GI endoscopy. Qualifiers: Anemia type: iron deficiency Iron deficiency anemia type: unspecified iron deficiency Qualified Code(s): D50.9 - Iron deficiency anemia, unspecified (3) Congestive heart failure Current Visit: Yes Status: Acute Assessment and plan: Lungs are clear this time. She does not have lower extremity edema. Qualifiers: Congestive heart failure type: unspecified congestive heart failure type Congestive heart failure chronicity: acute Qualified Code(s): I50.9 - Heart failure, unspecified (4) Lactic acidosis Current Visit: Yes Status: Acute Assessment and plan: Currently she does not have any evidence for sepsis. (5) COPD (chronic obstructive pulmonary disease) Current Visit: Yes Status: Chronic Assessment and plan: Symptoms and exam are improved. She does demonstrate poor exercise tolerance Qualifiers: COPD type: emphysema Emphysema type: unspecified Qualified Code(s): J43.9 - Emphysema, unspecified (6) DM2 (diabetes mellitus, type 2) Current Visit: Yes Status: Chronic Assessment and plan: Sugars are higher with the Solu-Medrol. I cut her Levemirin half yesterday and we did hold the morning dose for blood sugars in the 40s. We can cover with sliding scale for today. Tomorrow we may need to bump her Levemir back up again. Qualifiers: Diabetes mellitus complication status: without complication Diabetes mellitus equipment operator intermodal yard insulin use: with equipment operator intermodal yard use Qualified Code(s): E11.9 - Type 2 diabetes mellitus without complications; Z79.4 - exterminator termite (current) use of insulin (7) HTN (hypertension) Current Visit: Yes Status: Chronic Assessment and plan: Blood pressure is at goal. Qualifiers: Hypertension type: essential hypertension Qualified Code(s): I10 - Essential (primary) hypertension - Time Spent With Patient Greater than 35 minutes - Subjective Interval history: Overall she feels she is doing OK. #PULMONARY/CONGESTIVE HEART FAILURE she reports her shortness of breath at rest has improved. She has not tried sitting at the bedside yet. #ANEMIA she is not aware of any bleeding. #REVIEW OF SYSTEMS she tells me that her appetite is "fair", ate some yesterday. No abdominal pain, just not hungry. - Constitutional Vitals: O2 sat drops to 89% just with turning on her side a little for me to examine her lungs, quickly returns to normal with repositioning. . Temp Pulse Resp BP Pulse Ox 98.2 F 82 16 130/63 95 06/17/17 11:00 06/17/17 11:00 06/17/17 11:00 06/17/17 11:00 06/17/17 11:00 General appearance: Present: mild distress (She has notably increased respiratory effort with some pursing for expiration. She's not in distress as such.), A&O X 3, morbidly obese, pleasant, answers questions appropriately (She does not know her medications very well.) - Respiratory Respiratory exam: Present: CTAB. Absent: accessory muscle use, rales, rhonchi, wheezes (wheezing heard yesterday has resolved. ) Internal Medicine: Result - Labs CBC & Chem 7: 06/17/17 04:20 06/17/17 04:20 Labs: Short CBC 06/17/17 Range/Units 04:20 WBC 13.3 H (4.3-11.1) K/mcL Hgb 7.6 L (11.5-15.4) g/dL Hct 25.3 L (35.3-44.9) % Plt Count 196 (140-400) K/mcL Neutrophils # 11.6 H (1.6-8.9) K/mcL BMP 06/17/17 04:20 Sodium 136 Potassium 4.6 H Chloride 101 Carbon Dioxide 28 BUN 19 Creatinine 0.83 Glucose 311 H Calcium 8.6 Urine 06/16/17 Range/Units 14:07 Urine Color Yellow (Yellow) Urine Clarity Clear (Clear) Urine pH 6.0 (5.0-8.0) pH Units Ur Specific [place] 1.015 (1.010-1.025) Urine Protein Negative (Neg-Trace) mg/dL Urine Glucose (UA) Normal (Normal) mg/dL - ABG Interpretation ABG results: PT/INR, D-dimer PT 21.0 Seconds (9.4-12.1) H 06/14/17 17:30 - VTE Reasons for not Prescribing Prophylaxis: Medical contraindication Documentation of Mechanical Device: Intermittent pneumatic compression device Consult Discharge Plan - Plan Referrals: Huang Najera MD [Primary Care Provider] -
[2017-06-17] MEDS: *HR* LORazepam 0.5 MG TABLET PO PRN ×2 (13:51→22:24)
[2017-06-17] MEDS: Gabapentin 300 MG CAPSULE PO SCH (21:57)
[2017-06-18] MEDS: methylPREDNISolone 125 MG/2 ML VIAL IVP SCH ×2 (05:42→16:56)
[2017-06-18] MEDS: Acetaminophen 325 MG TABLET PO PRN ×2 (05:46→16:07)
--- NOTE | 2017-06-18 07:40 | Internal Med Progress Note ---
Date of Encounter: 06/18/17 Time of Encounter: 07:40 - Assessment and plan (1) Anemia Current Visit: Yes Status: Acute Assessment and plan: After 3 units her hemoglobin was 7.6 yesterday. Today's lab pending. She will eventually need GI workup with upper and lower endoscopy. Qualifiers: Anemia type: iron deficiency Iron deficiency anemia type: unspecified iron deficiency Qualified Code(s): D50.9 - Iron deficiency anemia, unspecified (2) Congestive heart failure Current Visit: Yes Status: Acute Assessment and plan: I suspect her pulmonary status is more from bronchitis/infection in large airways than CHF. Qualifiers: Congestive heart failure type: unspecified congestive heart failure type Congestive heart failure chronicity: acute Qualified Code(s): I50.9 - Heart failure, unspecified (3) Lactic acidosis Current Visit: Yes Status: Resolved Assessment and plan: Improved after perfusion improved with anemia corrected (4) Acute bronchitis Current Visit: Yes Status: Acute Assessment and plan: Steroids was added likely due to exacerbation of COPD. Need to continue with aggressive respiratory therapy Qualifiers: Bronchitis organism: unspecified organism Qualified Code(s): J20.9 - Acute bronchitis, unspecified (5) History of stroke Current Visit: Yes Status: Chronic Assessment and plan: No signs of new CVA. (6) Paroxysmal atrial fibrillation Current Visit: Yes Status: Chronic Assessment and plan: staying in sinus rhythm. Was anticoagulated because of proximal atrial fibrillation. Eliquis held due to her life-threatening anemia. (7) DM2 (diabetes mellitus, type 2) Current Visit: Yes Status: Chronic Assessment and plan: Patient developed hypoglycemia over the weekend, likely because of her high dose of insulin and significantly improved diet plan in the hospital compared to home. Dr. Kamara cut back her insulin and we will continue to follow. She has also received steroids which will increase her sugars. Qualifiers: Diabetes mellitus complication status: without complication Diabetes mellitus regional intermodal truck driver insulin use: with regional intermodal truck driver use Qualified Code(s): E11.9 - Type 2 diabetes mellitus without complications; Z79.4 - prison (current) use of insulin; Z79.4 - prison (current) use of insulin; Z79.4 - terminal gauger ( current) use of insulin; Z79.4 - prison (current) use of insulin (8) HTN (hypertension) Current Visit: Yes Status: Chronic Assessment and plan: Is under reasonable control with current medications. Qualifiers: Hypertension type: essential hypertension Qualified Code(s): I10 - Essential (primary) hypertension (9) COPD (chronic obstructive pulmonary disease) Current Visit: Yes Status: Chronic Assessment and plan: Dr. Kamara added steroids over the weekend. I need to be sure she is getting her breathing treatments. We need to be more aggressive with her pulmonary toilet and increased activity level. Qualifiers: COPD type: emphysema Emphysema type: unspecified Qualified Code(s): J43.9 - Emphysema, unspecified - Subjective Interval history: Patient was very sleepy this morning. When I asked if she was having any pain she pointed to her right shoulder. She denied any cardiac type chest pain or shortness of breath. However I woke her up and not sure she is fully coherent. Nurse reports that patient was restless last night but much improved after giving her baclofen and the lorazepam. - Constitutional Vitals: Temp Pulse Resp BP Pulse Ox 97.9 F 68 16 158/68 94 06/18/17 04:00 06/18/17 04:00 06/18/17 04:00 06/18/17 04:00 06/18/17 04:00 General appearance: Present: A&O X 3, morbidly obese, pleasant, no acute distress (Patient was sleeping quite comfortably.), answers questions appropriately (She was very sleepy but appeared to be appropriate otherwise) - Respiratory Additional comments: Large airway congestion/rhonchi noted. Loose cough. Noisy audible respirations. - Cardiovascular Cardiovascular exam: Present: distant heart sounds, RRR, +S1, +S2. Absent: systolic murmur - GI/Abdominal GI/Abdominal exam: Present: soft. Absent: mass, tenderness - Extremities Exam Extremities exam: Absent: calf tenderness, pedal edema Internal Medicine: Result - Labs CBC & Chem 7: 06/17/17 04:20 06/17/17 04:20 Labs: Laboratory for today is pending - ABG Interpretation ABG results: PT/INR, D-dimer PT 21.0 Seconds (9.4-12.1) H 06/14/17 17:30 - VTE Reasons for not Prescribing Prophylaxis: Medical contraindication Documentation of Mechanical Device: Intermittent pneumatic compression device Consult Discharge Plan - Plan Referrals: Huang Najera MD [Primary Care Provider] -
[2017-06-18] MEDS: Diltiazem CD (24hr) 180 MG CAPSULE PO SCH (08:30)
[2017-06-18] MEDS: Magnesium Oxide 400 MG TABLET PO SCH (08:31)
[2017-06-18] MEDS: Lisinopril 20 MG TABLET PO SCH (08:31)
[2017-06-18] MEDS: Folic Acid 1 MG TABLET PO SCH (08:31)
[2017-06-18] MEDS: FLUoxetine 20 MG CAPSULE PO SCH (08:31)
[2017-06-18] MEDS: Furosemide 40 MG TABLET PO SCH (08:32)
[2017-06-18] MEDS: Insulin LISPRO 300 UNITS/3 ML VIAL SQ SCH ×5 (08:32→20:56)
[2017-06-18] MEDS: Nystatin POWDER 30 GM BOTTLE TP SCH ×3 (08:36→20:58)
[2017-06-18] MEDS: Insulin DETEMIR 100 UNIT/ML X5UNITS SQ SCH ×2 (08:44→20:55)
[2017-06-18] MEDS: Budesonide/Formoterol 160/4.5 MDI IH SCH ×2 (09:04→20:59)
[2017-06-18 11:40] LABS: Basophils % 0.1 %; Eosinophils % 0.1 %; Hematocrit 27.1 % (35.3-44.9); Immature Granulocytes % 1.2 % (0-4); Lymphocytes # 0.6 K/mcL (0.6-4.6); Lymphocytes % 4.5 %; Mean Corpuscular HGB Conc 29.5 g/dL (31.6-35.5); Mean Corpuscular Hemoglobin 25.7 pg (28.0-33.3); Mean Corpuscular Volume 87.1 fL (83.0-100.0); Mean Platelet Volume 12.3 fL (9.4-12.4); Monocytes # 0.3 K/mcL (0.0-1.3); Monocytes % 2.6 %; Neutrophils # 11.2 K/mcL (1.6-8.9); Nucleated Red Blood Cells 0.2 /100 WBC (0); Platelet Count 197 K/mcL (140-400); Red Blood Count 3.11 M/mcL (3.82-4.97); Red Cell Distribution Width 17.6 % (11.5-14.5); Segmented Neutrophils % 91.5 %
[2017-06-18 11:51] LABS: BUN/Creatinine Ratio 21 (6-26); Blood Urea Nitrogen 20 mg/dL (7-20); Calcium 8.9 mg/dL (8.6-10.8); Carbon Dioxide 29 mEq/L (19-29); Chloride 98 mEq/L (98-109); Glucose 386 mg/dL (70-99); Osmolality,Calculated 301 (280-300); Potassium 4.4 mEq/L (3.5-4.5); Sodium 136 mEq/L (136-145); eGFR For African Americans > 60 (> 60); eGFR For Non-African Americans 59 (> 60)
[2017-06-18] MEDS ORDERED: Insulin LISPRO 300 UNITS/3 ML VIAL SQ SCH ×2 (12:07)
[2017-06-18] MEDS: Nitroglycerin 0.4 MG TAB.SUBL SL PRN ×2 (15:28→21:17)
--- NOTE | 2017-06-18 19:35 | Event Note ---
Date of Encounter: 06/18/17 Time of Encounter: 19:35 Patient is not having any chest pain or dyspnea currently. Earlier she had right sided arm pain with chest pain was given nitroglycerin once. It did seem to help her symptoms a bit. She had no diaphoresis, dyspnea or other related symptoms. Tonight she wanted out of bed and was two-person assist and she was able to stand and pivot and sit in a bedside chair. She tolerated that well. She has been in normal sinus rhythm with a pulse in the 70s her lungs show diminished breath sounds but essentially clear. Heart showed regular rate and rhythm without significant murmur. Extremities without significant edema. Hemoglobin today returned is 8.0. We will see what PT and OT can do for evaluation of her tomorrow to decide whether she is material for swing bed, rehabilitation or senior care prior to discharge to home. I doubt she will be strong enough to undergo upper and lower endoscopy this week but I will speak with Dr. Winters about this.
[2017-06-18] MEDS: Gabapentin 300 MG CAPSULE PO SCH (20:55)
[2017-06-19] MEDS: methylPREDNISolone 125 MG/2 ML VIAL IVP SCH (04:43)
[2017-06-19] MEDS: Ondansetron 4 MG/2 ML VIAL IVP PRN (04:43)
[2017-06-19 06:56] LABS: Basophils % 0.1 %; Eosinophils % 0.1 %; Hematocrit 27.6 % (35.3-44.9); Hemoglobin 8.1 g/dL (11.5-15.4); Immature Granulocytes % 1.2 % (0-4); Lymphocytes # 0.9 K/mcL (0.6-4.6); Mean Corpuscular HGB Conc 29.3 g/dL (31.6-35.5); Mean Corpuscular Hemoglobin 25.5 pg (28.0-33.3); Mean Corpuscular Volume 86.8 fL (83.0-100.0); Mean Platelet Volume 12.9 fL (9.4-12.4); Monocytes # 0.8 K/mcL (0.0-1.3); Monocytes % 6.3 %; Neutrophils # 10.8 K/mcL (1.6-8.9); Nucleated Red Blood Cells 0.2 /100 WBC (0); Platelet Count 189 K/mcL (140-400); Red Blood Count 3.18 M/mcL (3.82-4.97); Red Cell Distribution Width 17.6 % (11.5-14.5); Segmented Neutrophils % 85.3 %
[2017-06-19 07:08] LABS: BUN/Creatinine Ratio 29 (6-26); Blood Urea Nitrogen 25 mg/dL (7-20); Carbon Dioxide 27 mEq/L (19-29); Chloride 100 mEq/L (98-109); Glucose 332 mg/dL (70-99); Osmolality,Calculated 297 (280-300); Potassium 4.4 mEq/L (3.5-4.5); Sodium 135 mEq/L (136-145); eGFR For African Americans > 60 (> 60); eGFR For Non-African Americans > 60 (> 60)
--- NOTE | 2017-06-19 07:19 | Internal Med Progress Note ---
Date of Encounter: 06/19/17 Time of Encounter: 07:00 - Assessment and plan (1) Anemia Current Visit: Yes Status: Acute Assessment and plan: Her blood count is now staying stable and she slightly improved at 8.1 g. She had a total of 3 units transfused. I will check with Dr. Winters to see whether he can see her in consultation or do upper and lower endoscopy during this hospitalization or plan as an outpatient when she may be physically more fit. No obvious brisk bleeding noted. Qualifiers: Anemia type: iron deficiency Iron deficiency anemia type: unspecified iron deficiency Qualified Code(s): D50.9 - Iron deficiency anemia, unspecified (2) Congestive heart failure Current Visit: Yes Status: Acute Assessment and plan: She is CHF noted on admission with minimally elevated BNP. This was likely from high output heart failure because of her severe anemia. That now seems be resolving. A year ago her echocardiogram revealed good ejection fraction of 65% . We will consider repeating the echocardiogram though I am not sure clinically that it will make a difference at this point because we have anemia as the source of her heart failure. Qualifiers: Congestive heart failure type: unspecified congestive heart failure type Congestive heart failure chronicity: acute Qualified Code(s): I50.9 - Heart failure, unspecified (3) Lactic acidosis Current Visit: Yes Status: Resolved (4) Acute bronchitis Current Visit: Yes Status: Acute Assessment and plan: Still has bronchitic type cough, rhonchi and needs more aggressive respiratory treatments. It is written for her to have albuterol nebulizer every 4 hours when necessary. Is obviously she is not getting it often enough and I will make this routine every 4 hours while awake. Consider follow-up chest x-ray as well. Qualifiers: Bronchitis organism: unspecified organism Qualified Code(s): J20.9 - Acute bronchitis, unspecified (5) History of stroke Current Visit: Yes Status: Chronic (6) Paroxysmal atrial fibrillation Current Visit: Yes Status: Chronic Assessment and plan: Patient remains in normal sinus rhythm. We will consider discontinuing the computer hardware developer if troponin is negative this morning. (7) DM2 (diabetes mellitus, type 2) Current Visit: Yes Status: Chronic Assessment and plan: Her sugars are in the 200s and 300s again. She is getting steroids intravenously. Her sliding scale has been increased from low to medium to high now. Qualifiers: Diabetes mellitus complication status: without complication Diabetes mellitus keno terminal operator insulin use: with skilled nursing use Qualified Code(s): E11.9 - Type 2 diabetes mellitus without complications; Z79.4 - keno terminal operator (current) use of insulin; Z79.4 - keno terminal operator (current) use of insulin; Z79.4 - detention ( current) use of insulin; Z79.4 - keno terminal operator (current) use of insulin (8) HTN (hypertension) Current Visit: Yes Status: Chronic Assessment and plan: Blood pressure has been under adequate control. Qualifiers: Hypertension type: essential hypertension Qualified Code(s): I10 - Essential (primary) hypertension (9) COPD (chronic obstructive pulmonary disease) Current Visit: Yes Status: Chronic Assessment and plan: She is a history of chronic COPD, now with some exacerbation with her bronchitis. IV steroids was added and we will try to decrease. More aggressive aerosol treatments for now. Qualifiers: COPD type: emphysema Emphysema type: unspecified Qualified Code(s): J43.9 - Emphysema, unspecified (10) Physical deconditioning Current Visit: Yes Status: Acute Assessment and plan: She appears be very weak. It took 2 people to get her to stand pivot and sit into a bedside chair last night. I like for her to be evaluated by PT and OT to see if she is a candidate for swing bed, rehabilitation or [place] [facility] placement. At home she is in a reclining chair most of the time but has a bedside commode. - Subjective Interval history: Patient is sleepy this morning. Nurses report patient did not sleep well last night. She is sitting up in a reclining chair. She denies any typical cardiac type chest pain. She does point to the midsternal area and has a cough and feels as if it is her lungs hurting. She denies any classical angina symptoms with chest pressure, radiation to neck or jaw or left arm etc. She has been given nitroglycerin twice in the past 24 hours with some relief, not sure if that was from cardiac etiology or not. She had complained of right shoulder and arm pain with one episode of chest pain. She continues to have a cough. She denies any other new changes though she is a poor historian. - Constitutional Vitals: Temp Pulse Resp BP Pulse Ox 97.8 F 73 18 159/69 89 06/19/17 03:41 06/19/17 03:41 06/19/17 03:41 06/19/17 03:41 06/19/17 03:41 General appearance: Present: A&O X 3, morbidly obese, pleasant, no acute distress, answers questions appropriately (She was very sleepy but appeared to be appropriate otherwise) - Respiratory Additional comments: She is audible large airway congestion and a loose cough. She has scattered rhonchi that partially cleared with cough. Few dry crackles at the bases. No respiratory distress. - Cardiovascular Cardiovascular exam: Present: distant heart sounds, RRR, +S1, +S2, systolic murmur (1-2/6 systolic murmur.) Additional comments: valet cashier showed normal sinus rhythm and pulse in the 60s to 70s. No change in this monitor tracing through her course. - GI/Abdominal Additional comments: Abdomen is quite obese. Nontender. - Extremities Exam Additional comments: She has some puffiness in her feet and ankles. Not impressive for pitting edema though. Internal Medicine: Result - Labs CBC & Chem 7: 06/19/17 06:24 06/19/17 06:24 Labs: Short CBC 06/18/17 06/19/17 Range/Units 11:20 06:24 WBC 12.2 H 12.7 H (4.3-11.1) K/mcL Hgb 8.0 L 8.1 L (11.5-15.4) g/dL Hct 27.1 L 27.6 L (35.3-44.9) % Plt Count 197 189 (140-400) K/mcL Neutrophils # 11.2 H 10.8 H (1.6-8.9) K/mcL BMP 06/18/17 11:20 Sodium 136 Potassium 4.4 Chloride 98 Carbon Dioxide 29 BUN 20 Creatinine 0.94 Glucose 386 H Calcium 8.9 White blood cell count is slowly improving. Her hemoglobin has actually gone up to 8.1 despite no further transfusions. - ABG Interpretation ABG results: PT/INR, D-dimer PT 21.0 Seconds (9.4-12.1) H 06/14/17 17:30 - Diagnostic Studies Other Images Additional comments: Echocardiogram from last year showed 65% ejection fraction. Mild aortic stenosis. - VTE Reasons for not Prescribing Prophylaxis: Medical contraindication Documentation of Mechanical Device: Graduated compression elastic hosiery Consult Discharge Plan - Plan Referrals: Huang Najera MD [Primary Care Provider] -
[2017-06-19] MEDS: Insulin LISPRO 300 UNITS/3 ML VIAL SQ SCH ×4 (08:07→21:09)
[2017-06-19] MEDS: Magnesium Oxide 400 MG TABLET PO SCH (08:08)
[2017-06-19] MEDS: FLUoxetine 20 MG CAPSULE PO SCH (08:08)
[2017-06-19] MEDS: Diltiazem CD (24hr) 180 MG CAPSULE PO SCH (08:09)
[2017-06-19] MEDS: Lisinopril 20 MG TABLET PO SCH (08:09)
[2017-06-19] MEDS: Folic Acid 1 MG TABLET PO SCH (08:09)
[2017-06-19] MEDS: Furosemide 40 MG TABLET PO SCH (08:10)
[2017-06-19] MEDS: Nystatin POWDER 30 GM BOTTLE TP SCH ×3 (08:10→21:13)
[2017-06-19] MEDS: Insulin DETEMIR 100 UNIT/ML X5UNITS SQ SCH ×2 (08:10→21:08)
[2017-06-19] MEDS: Albuterol 2.5 MG/3 ML NEBULIZER IH SCH ×4 (08:16→21:08)
[2017-06-19] MEDS: Budesonide/Formoterol 160/4.5 MDI IH SCH ×2 (08:16→21:11)
[2017-06-19] MEDS ORDERED: MOM Conc 10 ML UD.LIQ PO ONE (16:08)
[2017-06-19] MEDS: Acetaminophen 325 MG TABLET PO PRN (17:13)
[2017-06-19] MEDS: Gabapentin 300 MG CAPSULE PO SCH (21:10)
[2017-06-20] MEDS: Albuterol 2.5 MG/3 ML NEBULIZER IH SCH ×4 (00:15→11:58)
[2017-06-20 07:35] VITALS: BP 138/78
[2017-06-20] MEDS: Furosemide 40 MG TABLET PO SCH (08:35)
[2017-06-20] MEDS: Lisinopril 20 MG TABLET PO SCH (08:35)
[2017-06-20] MEDS: Diltiazem CD (24hr) 180 MG CAPSULE PO SCH (08:35)
[2017-06-20] MEDS: Folic Acid 1 MG TABLET PO SCH (08:36)
[2017-06-20] MEDS: Magnesium Oxide 400 MG TABLET PO SCH (08:36)
[2017-06-20] MEDS: FLUoxetine 20 MG CAPSULE PO SCH (08:37)
[2017-06-20] MEDS: Acetaminophen 325 MG TABLET PO PRN (08:44)
[2017-06-20] MEDS: Budesonide/Formoterol 160/4.5 MDI IH SCH (08:45)
[2017-06-20] MEDS: Insulin LISPRO 300 UNITS/3 ML VIAL SQ SCH ×2 (08:46→11:55)
[2017-06-20] MEDS ORDERED: methylPREDNISolone 125 MG/2 ML VIAL IVP SCH (09:00)
--- NOTE | 2017-06-20 10:28 | Discharge Summary ---
Date of Encounter: 06/20/17 Time of Encounter: 10:25 - Discharge Diagnosis (1) Anemia Priority: Primary Status: Acute Comments: Patient was admitted from the ER having been at home with increased shortness of breath and weakness for 2 or 3 weeks. In the ER she was found to have a hemoglobin of 5.4 and later was 4.9 prior to transfusion of blood. She has a known history of iron deficiency anemia and was to have consultation with Dr. Winters for endoscopy, apparently showed up on the wrong day to see him. That consultation was rescheduled. She did not have any active bleeding, melena, hematochezia by history. In the ER she was found to have lactic acidosis and congestive heart failure likely from the severe life-threatening anemia. She ended up having 3 units of blood. Her hemoglobin has been in the 8 g range and stable for the past few days. Amazingly her vitals remained stable through the entire hospital course. With a stable hemoglobin and extreme weakness she is not a good candidate at this time to have upper and lower endoscopy until she has regained some ADLs and strength. The plan is to go to [facility] for ongoing 24-hour nursing care and therapies to help regain her ADLs to eventually go home. Qualifiers: Anemia type: iron deficiency Iron deficiency anemia type: unspecified iron deficiency Qualified Code(s): D50.9 - Iron deficiency anemia, unspecified (2) Congestive heart failure Priority: Secondary Status: Resolved Comments: When she was admitted she had acute congestive heart failure with a BNP in the 300 range and increased pulmonary vasculature noted on her chest x-ray. Likely this was high output congestive heart failure from her severe anemia. Her previous echocardiogram showed 65% ejection fraction. Her vitals remained stable. She was given Lasix intravenously and then her usual Lasix that she uses for dependent edema in lower extremities. Qualifiers: Congestive heart failure type: unspecified congestive heart failure type Congestive heart failure chronicity: acute Qualified Code(s): I50.9 - Heart failure, unspecified (3) Lactic acidosis Priority: Secondary Status: Resolved Comments: On admission she has severe lactic acidosis and it peaked at 4.0. At no time did she appear to have sepsis. This is likely from hypoperfusion from severe anemia. It was improved after blood transfusion. (4) Acute bronchitis Priority: Secondary Status: Acute Comments: On admission she had history of cough, congestion, sputum production and presumed acute bronchitis. She has a history of COPD and was treated with Rocephin. With increasing her nebulizer treatments to every 4 hours while awake her pulmonary status has improved. She has had good oxygenation. We are checking her pulse ox on room air to see if she still needs oxygen. Qualifiers: Bronchitis organism: unspecified organism Qualified Code(s): J20.9 - Acute bronchitis, unspecified (5) History of stroke Priority: Secondary Status: Chronic Comments: History of previous stroke and right-sided hemiparesis. This limits her gait. She had no recurrence of CVA during this hospital stay. (6) Paroxysmal atrial fibrillation Priority: Secondary Status: Chronic Comments: She is a history of paroxysmal atrial fibrillation. She is long-term anticoagulation with Eliquis. It was held on admission because of the anemia and was reinitiated. She has had normal sinus rhythm during the entire hospital course. I discussed the risks and benefits of long-term anticoagulation with the daughter and decided to continue with Eliquis and monitor. (7) DM2 (diabetes mellitus, type 2) Priority: Secondary Status: Chronic Comments: She is a chronic history of diabetes. Typically at home she takes a huge amount of long-acting insulin, 100 units in the morning and 50 units in the evening. She has sliding scale insulin as well. Surprisingly her last glycohemoglobin was 6.3%. However, in the hospital, with a better diet, she had hypoglycemia and her medications were cut dramatically. She received steroids which increased her sugars as well. This will need to be monitored closely. 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 No change in her medications. Qualifiers: Hypertension type: essential hypertension Qualified Code(s): I10 - Essential (primary) hypertension (9) COPD (chronic obstructive pulmonary disease) Priority: Secondary Status: Chronic Comments: History chronic COPD and previous tobacco use. At home she has inhalers as well as nebulizer machine. Because of weakness she has issues with pulmonary toilet. We are not giving her nebulizer treatments every 4 hours while awake and she has improvement. Qualifiers: COPD type: emphysema Emphysema type: unspecified Qualified Code(s): J43.9 - Emphysema, unspecified (10) Physical deconditioning Priority: Secondary Status: Acute Comments: Patient's physical deconditioning because of her hospitalization and multiple medical problems. She was evaluated by PT and OT and not a suitable candidate for inpatient rehabilitation. She is full assist with lower extremity dressing. She is able to take a step or 2 to a bedside commode or chair but really fatigues quite easily and becomes dyspneic. She cannot go home in this condition and will need ongoing jail care and therapies. - Discharge Medications Home Medications: Albuterol Neb [AccuNeb] 0.63 mg IH Q4HR PRN 12/03/15 [History] Albuterol Sulfate [Proair Hfa] 2 puff IH Q4HR PRN 12/03/15 [History] Baclofen 10 mg PO TID PRN 12/03/15 [History] Folic Acid 1 mg PO DAILY 12/03/15 [History] Gabapentin [Neurontin] 600 mg PO HS 12/03/15 [History] Metoprolol Tartrate [Lopressor] 12.5 mg PO BID 12/03/15 [History] Nitroglycerin [Nitrostat] 0.4 mg SL PRN PRN 12/03/15 [History] Omeprazole [PriLOSEC] 20 mg PO DAILY 12/03/15 [History] metFORMIN [Glucophage] 1,000 mg PO BIDWM 12/03/15 [History] Budesonide/Formoterol 160/4.5 [Symbicort 160/4.5] 2 puff IH BIDR 12/04/15 [ History] Ergocalciferol (VITAMIN D2) [Drisdol (50,000 Unit)] 50,000 unit PO QWEEK capsule 12/09/15 [Rx] Apixaban [Eliquis] 5 mg PO BID #60 tablet 03/28/16 [Rx] Ferrous Gluconate 324 mg PO BID 06/14/17 [History] Lisinopril [Zestril] 20 mg PO DAILY 06/14/17 [History] Magnesium Oxide 400 mg PO DAILY 06/14/17 [History] Diltiazem CD (24hr) [Cardizem CD] 180 mg PO DAILY 06/15/17 [History] Docusate [Colace] 100 mg PO DAILY 06/15/17 [History] FLUoxetine HCl [Prozac] 20 mg PO DAILY 06/15/17 [History] Furosemide [Lasix] 40 mg PO DAILY 06/15/17 [History] Insulin DETEMIR [Levemir] 50 unit SQ HS 06/15/17 [History] Loratadine [Claritin] 10 mg PO DAILY PRN 06/15/17 [History] Acetaminophen [Tylenol] 650 mg PO Q6HR PRN tablet 06/20/17 [Rx] Furosemide [Lasix] 40 mg PO DAILY tablet 06/20/17 [Rx] Insulin DETEMIR [Levemir] 25 unit SQ HS [id number] 06/20/17 [Rx] Insulin DETEMIR [Levemir] 50 unit SQ 0800 #0 06/20/17 [Rx] Insulin LISPRO [HumaLOG] 0 units SQ HS vial 06/20/17 [Rx] Insulin LISPRO [HumaLOG] 0 units SQ TIDAC vial 06/20/17 [Rx] Nystatin POWDER [Nystop] 1 appl TP TID bottle 06/20/17 [Rx] Allergies/Adverse Reactions: 3 Allergy/AdvReac Type Severity Reaction Status Date / Time ciprofloxacin Allergy Hives Verified 06/14/17 21:13 iodine Allergy See Verified 06/14/17 21:13 Comments promethazine [From Phenergan] Allergy See Verified 06/14/17 21:13 Comments Sulfa (Sulfonamide Allergy See Verified 06/14/17 21:13 Antibiotics) Comments walnut Allergy See Verified 06/14/17 21:13 Comments seafood Allergy See Uncoded 06/14/17 21:13 Comments Procedures/tests Complete & Pending: Procedures Performed prior 72 hours Category Date Time Status ECG 12 lead ECG [ECG] Routine Y 06/18/17 15:12 Completed Laboratory Results - last 24 hr 06/19/17 06/19/17 06/19/17 11:24 11:25 16:29 POC Glucose 488 H* 480 H* 408 H* 06/19/17 06/19/1717 16:30 21:03 01:51 POC Glucose 430 H* 310 H 186 H Lab Results 06/14/17 06/14/17 06/14/17 Range/Units 17:25 17:30 17:30 WBC 16.4 H (4.3-11.1) K/mcL RBC 2.23 L (3.82-4.97) M/mcL Hgb 5.4 L* (11.5-15.4) g/dL Hct 19.8 L (35.3-44.9) % MCV 88.8 (83.0-100.0) fL MCH 24.2 L (28.0-33.3) pg MCHC 27.3 L (31.6-35.5) g/dL RDW 19.4 H (11.5-14.5) % Plt Count 221 (140-400) K/mcL MPV 12.9 H (9.4-12.4) fL Immature Gran % 1.1 (0-4) % Seg Neutrophils % 86.2 % Lymphocytes % 5.7 % Monocytes % 5.6 % Eosinophils % 1.1 % Basophils % 0.3 % Neutrophils # 14.1 H (1.6-8.9) K/mcL Lymphocytes # 0.9 (0.6-4.6) K/mcL Monocytes # 0.9 (0.0-1.3) K/mcL Eosinophils # 0.2 (0.0-0.6) K/mcL Basophils # 0.1 (0.0-0.2) K/mcL Nucleated RBCs/100 WBC 0.2 H (0) /100 WBC PT 21.0 H (9.4-12.1) Seconds INR 1.9 APTT 33.5 (26.0-36.0) Seconds VBG pH (7.32-7.42) pH Units VBG pCO2 (41-51) mmHg VBG pO2 (25-50) mmHg VBG HCO3 (21-27) mEq/L Sodium (136-145) mEq/L Potassium (3.5-4.5) mEq/L Chloride (98-109) mEq/L Carbon Dioxide (19-29) mEq/L BUN (7-20) mg/dL Creatinine (0.57-1.11) mg/dL Est GFR ( Amer) (> 60) Est GFR (Non-Af Amer) (> 60) BUN/Creatinine Ratio (6-26) Glucose (70-99) mg/dL POC Glucose 279 H (58-89) Calculated Osmolality (280-300) Lactic Acid (0.5-2.2) mmol/L Calcium (8.6-10.8) mg/dL Total Bilirubin (0.2-1.2) mg/dL Direct Bilirubin (0.0-0.5) mg/dL Indirect Bilirubin (0.0-1.2) mg/dL AST (5-34) Units/L ALT (0-55) Units/L Alkaline Phosphatase (38-126) Units/L Troponin I (0-0.03) ng/mL B-Natriuretic Peptide (0-100) pg/mL Serum Total Protein (6.0-8.3) g/dL Albumin (3.5-5.0) g/dL Globulin (2.4-3.5) g/dL Albumin/Globulin Ratio (1.1-2.2) Urine Color (Yellow) Urine Clarity (Clear) Urine pH (5.0-8.0) pH Units Ur Specific [place] (1.010-1.025) Urine Protein (Neg-Trace) mg/dL Urine Glucose (UA) (Normal) mg/dL Urine Ketones (Negative) mg/dL Urine Blood (Negative) Urine Nitrite (Negative) Urine Bilirubin (Negative) Urine Urobilinogen (Normal) mg/dL Ur Leukocyte Esterase (Negative) Ur Culture Indicated? (NO) Blood Type Antibody Screen Antibody Identification MTS Gel Crossmatch 06/14/17 06/14/17 06/14/17 Range/Units 17:30 17:30 17:30 WBC (4.3-11.1) K/mcL RBC (3.82-4.97) M/mcL Hgb (11.5-15.4) g/dL Hct (35.3-44.9) % MCV (83.0-100.0) fL MCH (28.0-33.3) pg MCHC (31.6-35.5) g/dL RDW (11.5-14.5) % Plt Count (140-400) K/mcL MPV (9.4-12.4) fL Immature Gran % (0-4) % Seg Neutrophils % % Lymphocytes % % Monocytes % % Eosinophils % % Basophils % % Neutrophils # (1.6-8.9) K/mcL Lymphocytes # (0.6-4.6) K/mcL Monocytes # (0.0-1.3) K/mcL Eosinophils # (0.0-0.6) K/mcL Basophils # (0.0-0.2) K/mcL Nucleated RBCs/100 WBC (0) /100 WBC PT (9.4-12.1) Seconds INR APTT (26.0-36.0) Seconds VBG pH (7.32-7.42) pH Units VBG pCO2 (41-51) mmHg VBG pO2 (25-50) mmHg VBG HCO3 (21-27) mEq/L Sodium 136 (136-145) mEq/L Potassium 4.5 (3.5-4.5) mEq/L Chloride 101 (98-109) mEq/L Carbon Dioxide 27 (19-29) mEq/L BUN 18 (7-20) mg/dL Creatinine 1.03 (0.57-1.11) mg/dL Est GFR ( Amer) > 60 (> 60) Est GFR (Non-Af Amer) 53 L (> 60) BUN/Creatinine Ratio 17 (6-26) Glucose 268 H (70-99) mg/dL POC Glucose (58-89) Calculated Osmolality 293 (280-300) Lactic Acid 3.8 H (0.5-2.2) mmol/L Calcium 8.9 (8.6-10.8) mg/dL Total Bilirubin 1.0 (0.2-1.2) mg/dL Direct Bilirubin 0.5 (0.0-0.5) mg/dL Indirect Bilirubin 0.5 (0.0-1.2) mg/dL AST 19 (5-34) Units/L ALT 13 (0-55) Units/L Alkaline Phosphatase 81 (38-126) Units/L Troponin I 0.00 (0-0.03) ng/mL B-Natriuretic Peptide (0-100) pg/mL Serum Total Protein 8.0 (6.0-8.3) g/dL Albumin 3.0 L (3.5-5.0) g/dL Globulin 5.0 H (2.4-3.5) g/dL Albumin/Globulin Ratio 0.6 L (1.1-2.2) Urine Color (Yellow) Urine Clarity (Clear) Urine pH (5.0-8.0) pH Units Ur Specific [place] (1.010-1.025) Urine Protein (Neg-Trace) mg/dL Urine Glucose (UA) (Normal) mg/dL Urine Ketones (Negative) mg/dL Urine Blood (Negative) Urine Nitrite (Negative) Urine Bilirubin (Negative) Urine Urobilinogen (Normal) mg/dL Ur Leukocyte Esterase (Negative) Ur Culture Indicated? (NO) Blood Type Antibody Screen Antibody Identification MTS Gel Crossmatch 06/14/17 06/14/17 06/14/17 Range/Units 17:30 17:59 20:15 WBC (4.3-11.1) K/mcL RBC (3.82-4.97) M/mcL Hgb (11.5-15.4) g/dL Hct (35.3-44.9) % MCV (83.0-100.0) fL MCH (28.0-33.3) pg MCHC (31.6-35.5) g/dL RDW (11.5-14.5) % Plt Count (140-400) K/mcL MPV (9.4-12.4) fL Immature Gran % (0-4) % Seg Neutrophils % % Lymphocytes % % Monocytes % % Eosinophils % % Basophils % % Neutrophils # (1.6-8.9) K/mcL Lymphocytes # (0.6-4.6) K/mcL Monocytes # (0.0-1.3) K/mcL Eosinophils # (0.0-0.6) K/mcL Basophils # (0.0-0.2) K/mcL Nucleated RBCs/100 WBC (0) /100 WBC PT (9.4-12.1) Seconds INR APTT (26.0-36.0) Seconds VBG pH 7.45 H (7.32-7.42) pH Units VBG pCO2 33 L (41-51) mmHg VBG pO2 35 (25-50) mmHg VBG HCO3 23 (21-27) mEq/L Sodium (136-145) mEq/L Potassium (3.5-4.5) mEq/L Chloride (98-109) mEq/L Carbon Dioxide (19-29) mEq/L BUN (7-20) mg/dL Creatinine (0.57-1.11) mg/dL Est GFR ( Amer) (> 60) Est GFR (Non-Af Amer) (> 60) BUN/Creatinine Ratio (6-26) Glucose (70-99) mg/dL POC Glucose (58-89) Calculated Osmolality (280-300) Lactic Acid (0.5-2.2) mmol/L Calcium (8.6-10.8) mg/dL Total Bilirubin (0.2-1.2) mg/dL Direct Bilirubin (0.0-0.5) mg/dL Indirect Bilirubin (0.0-1.2) mg/dL AST (5-34) Units/L ALT (0-55) Units/L Alkaline Phosphatase (38-126) Units/L Troponin I (0-0.03) ng/mL B-Natriuretic Peptide 373 H (0-100) pg/mL Serum Total Protein (6.0-8.3) g/dL Albumin (3.5-5.0) g/dL Globulin (2.4-3.5) g/dL Albumin/Globulin Ratio (1.1-2.2) Urine Color (Yellow) Urine Clarity (Clear) Urine pH (5.0-8.0) pH Units Ur Specific [place] (1.010-1.025) Urine Protein (Neg-Trace) mg/dL Urine Glucose (UA) (Normal) mg/dL Urine Ketones (Negative) mg/dL Urine Blood (Negative) Urine Nitrite (Negative) Urine Bilirubin (Negative) Urine Urobilinogen (Normal) mg/dL Ur Leukocyte Esterase (Negative) Ur Culture Indicated? (NO) Blood Type O POSITIVE Antibody Screen POSITIVE A Antibody Identification Known Anti-Jka MTS Gel Crossmatch See Detail 06/14/17 06/15/17 06/15/17 Range/Units 21:36 04:58 08:00 WBC 15.2 H (4.3-11.1) K/mcL RBC 2.01 L (3.82-4.97) M/mcL Hgb 4.9 L* (11.5-15.4) g/dL Hct 17.5 L (35.3-44.9) % MCV 87.1 (83.0-100.0) fL MCH 24.4 L (28.0-33.3) pg MCHC 28.0 L (31.6-35.5) g/dL RDW 19.1 H (11.5-14.5) % Plt Count 188 (140-400) K/mcL MPV 12.6 H (9.4-12.4) fL Immature Gran % (0-4) % Seg Neutrophils % % Lymphocytes % % Monocytes % % Eosinophils % % Basophils % % Neutrophils # (1.6-8.9) K/mcL Lymphocytes # (0.6-4.6) K/mcL Monocytes # (0.0-1.3) K/mcL Eosinophils # (0.0-0.6) K/mcL Basophils # (0.0-0.2) K/mcL Nucleated RBCs/100 WBC (0) /100 WBC PT (9.4-12.1) Seconds INR APTT (26.0-36.0) Seconds VBG pH (7.32-7.42) pH Units VBG pCO2 (41-51) mmHg VBG pO2 (25-50) mmHg VBG HCO3 (21-27) mEq/L Sodium (136-145) mEq/L Potassium (3.5-4.5) mEq/L Chloride (98-109) mEq/L Carbon Dioxide (19-29) mEq/L BUN (7-20) mg/dL Creatinine (0.57-1.11) mg/dL Est GFR ( Amer) (> 60) Est GFR (Non-Af Amer) (> 60) BUN/Creatinine Ratio (6-26) Glucose (70-99) mg/dL POC Glucose 272 H 257 H (58-89) Calculated Osmolality (280-300) Lactic Acid (0.5-2.2) mmol/L Calcium (8.6-10.8) mg/dL Total Bilirubin (0.2-1.2) mg/dL Direct Bilirubin (0.0-0.5) mg/dL Indirect Bilirubin (0.0-1.2) mg/dL AST (5-34) Units/L ALT (0-55) Units/L Alkaline Phosphatase (38-126) Units/L Troponin I (0-0.03) ng/mL B-Natriuretic Peptide (0-100) pg/mL Serum Total Protein (6.0-8.3) g/dL Albumin (3.5-5.0) g/dL Globulin (2.4-3.5) g/dL Albumin/Globulin Ratio (1.1-2.2) Urine Color (Yellow) Urine Clarity (Clear) Urine pH (5.0-8.0) pH Units Ur Specific [place] (1.010-1.025) Urine Protein (Neg-Trace) mg/dL Urine Glucose (UA) (Normal) mg/dL Urine Ketones (Negative) mg/dL Urine Blood (Negative) Urine Nitrite (Negative) Urine Bilirubin (Negative) Urine Urobilinogen (Normal) mg/dL Ur Leukocyte Esterase (Negative) Ur Culture Indicated? (NO) Blood Type Antibody Screen Antibody Identification MTS Gel Crossmatch 06/15/17 06/15/17 06/15/17 Range/Units 11:46 12:56 12:56 WBC (4.3-11.1) K/mcL RBC (3.82-4.97) M/mcL Hgb (11.5-15.4) g/dL Hct (35.3-44.9) % MCV (83.0-100.0) fL MCH (28.0-33.3) pg MCHC (31.6-35.5) g/dL RDW (11.5-14.5) % Plt Count (140-400) K/mcL MPV (9.4-12.4) fL Immature Gran % (0-4) % Seg Neutrophils % % Lymphocytes % % Monocytes % % Eosinophils % % Basophils % % Neutrophils # (1.6-8.9) K/mcL Lymphocytes # (0.6-4.6) K/mcL Monocytes # (0.0-1.3) K/mcL Eosinophils # (0.0-0.6) K/mcL Basophils # (0.0-0.2) K/mcL Nucleated RBCs/100 WBC (0) /100 WBC PT (9.4-12.1) Seconds INR APTT (26.0-36.0) Seconds VBG pH (7.32-7.42) pH Units VBG pCO2 (41-51) mmHg VBG pO2 (25-50) mmHg VBG HCO3 (21-27) mEq/L Sodium 139 (136-145) mEq/L Potassium 4.1 (3.5-4.5) mEq/L Chloride 102 (98-109) mEq/L Carbon Dioxide 25 (19-29) mEq/L BUN 19 (7-20) mg/dL Creatinine 1.00 (0.57-1.11) mg/dL Est GFR ( Amer) > 60 (> 60) Est GFR (Non-Af Amer) 55 L (> 60) BUN/Creatinine Ratio 19 (6-26) Glucose 208 H (70-99) mg/dL POC Glucose 279 H (58-89) Calculated Osmolality 296 (280-300) Lactic Acid 4.4 H* (0.5-2.2) mmol/L Calcium 8.8 (8.6-10.8) mg/dL Total Bilirubin (0.2-1.2) mg/dL Direct Bilirubin (0.0-0.5) mg/dL Indirect Bilirubin (0.0-1.2) mg/dL AST (5-34) Units/L ALT (0-55) Units/L Alkaline Phosphatase (38-126) Units/L Troponin I (0-0.03) ng/mL B-Natriuretic Peptide (0-100) pg/mL Serum Total Protein (6.0-8.3) g/dL Albumin (3.5-5.0) g/dL Globulin (2.4-3.5) g/dL Albumin/Globulin Ratio (1.1-2.2) Urine Color (Yellow) Urine Clarity (Clear) Urine pH (5.0-8.0) pH Units Ur Specific [place] (1.010-1.025) Urine Protein (Neg-Trace) mg/dL Urine Glucose (UA) (Normal) mg/dL Urine Ketones (Negative) mg/dL Urine Blood (Negative) Urine Nitrite (Negative) Urine Bilirubin (Negative) Urine Urobilinogen (Normal) mg/dL Ur Leukocyte Esterase (Negative) Ur Culture Indicated? (NO) Blood Type Antibody Screen Antibody Identification MTS Gel Crossmatch 06/15/17 06/15/17 06/15/17 Range/Units 12:56 16:43 18:10 WBC (4.3-11.1) K/mcL RBC (3.82-4.97) M/mcL Hgb 6.1 L 6.7 L (11.5-15.4) g/dL Hct 21.8 L 22.7 L (35.3-44.9) % MCV (83.0-100.0) fL MCH (28.0-33.3) pg MCHC (31.6-35.5) g/dL RDW (11.5-14.5) % Plt Count (140-400) K/mcL MPV (9.4-12.4) fL Immature Gran % (0-4) % Seg Neutrophils % % Lymphocytes % % Monocytes % % Eosinophils % % Basophils % % Neutrophils # (1.6-8.9) K/mcL Lymphocytes # (0.6-4.6) K/mcL Monocytes # (0.0-1.3) K/mcL Eosinophils # (0.0-0.6) K/mcL Basophils # (0.0-0.2) K/mcL Nucleated RBCs/100 WBC (0) /100 WBC PT (9.4-12.1) Seconds INR APTT (26.0-36.0) Seconds VBG pH (7.32-7.42) pH Units VBG pCO2 (41-51) mmHg VBG pO2 (25-50) mmHg VBG HCO3 (21-27) mEq/L Sodium (136-145) mEq/L Potassium (3.5-4.5) mEq/L Chloride (98-109) mEq/L Carbon Dioxide (19-29) mEq/L BUN (7-20) mg/dL Creatinine (0.57-1.11) mg/dL Est GFR ( Amer) (> 60) Est GFR (Non-Af Amer) (> 60) BUN/Creatinine Ratio (6-26) Glucose (70-99) mg/dL POC Glucose 69 (58-89) Calculated Osmolality (280-300) Lactic Acid (0.5-2.2) mmol/L Calcium (8.6-10.8) mg/dL Total Bilirubin (0.2-1.2) mg/dL Direct Bilirubin (0.0-0.5) mg/dL Indirect Bilirubin (0.0-1.2) mg/dL AST (5-34) Units/L ALT (0-55) Units/L Alkaline Phosphatase (38-126) Units/L Troponin I (0-0.03) ng/mL B-Natriuretic Peptide (0-100) pg/mL Serum Total Protein (6.0-8.3) g/dL Albumin (3.5-5.0) g/dL Globulin (2.4-3.5) g/dL Albumin/Globulin Ratio (1.1-2.2) Urine Color (Yellow) Urine Clarity (Clear) Urine pH (5.0-8.0) pH Units Ur Specific [place] (1.010-1.025) Urine Protein (Neg-Trace) mg/dL Urine Glucose (UA) (Normal) mg/dL Urine Ketones (Negative) mg/dL Urine Blood (Negative) Urine Nitrite (Negative) Urine Bilirubin (Negative) Urine Urobilinogen (Normal) mg/dL Ur Leukocyte Esterase (Negative) Ur Culture Indicated? (NO) Blood Type Antibody Screen Antibody Identification MTS Gel Crossmatch 06/15/17 06/15/17 06/15/17 Range/Units 18:10 20:10 20:12 WBC (4.3-11.1) K/mcL RBC (3.82-4.97) M/mcL Hgb (11.5-15.4) g/dL Hct (35.3-44.9) % MCV (83.0-100.0) fL MCH (28.0-33.3) pg MCHC (31.6-35.5) g/dL RDW (11.5-14.5) % Plt Count (140-400) K/mcL MPV (9.4-12.4) fL Immature Gran % (0-4) % Seg Neutrophils % % Lymphocytes % % Monocytes % % Eosinophils % % Basophils % % Neutrophils # (1.6-8.9) K/mcL Lymphocytes # (0.6-4.6) K/mcL Monocytes # (0.0-1.3) K/mcL Eosinophils # (0.0-0.6) K/mcL Basophils # (0.0-0.2) K/mcL Nucleated RBCs/100 WBC (0) /100 WBC PT (9.4-12.1) Seconds INR APTT (26.0-36.0) Seconds VBG pH (7.32-7.42) pH Units VBG pCO2 (41-51) mmHg VBG pO2 (25-50) mmHg VBG HCO3 (21-27) mEq/L Sodium (136-145) mEq/L Potassium (3.5-4.5) mEq/L Chloride (98-109) mEq/L Carbon Dioxide (19-29) mEq/L BUN (7-20) mg/dL Creatinine (0.57-1.11) mg/dL Est GFR ( Amer) (> 60) Est GFR (Non-Af Amer) (> 60) BUN/Creatinine Ratio (6-26) Glucose (70-99) mg/dL POC Glucose 52 L 50 L (58-89) Calculated Osmolality (280-300) Lactic Acid 3.1 H (0.5-2.2) mmol/L Calcium (8.6-10.8) mg/dL Total Bilirubin (0.2-1.2) mg/dL Direct Bilirubin (0.0-0.5) mg/dL Indirect Bilirubin (0.0-1.2) mg/dL AST (5-34) Units/L ALT (0-55) Units/L Alkaline Phosphatase (38-126) Units/L Troponin I (0-0.03) ng/mL B-Natriuretic Peptide (0-100) pg/mL Serum Total Protein (6.0-8.3) g/dL Albumin (3.5-5.0) g/dL Globulin (2.4-3.5) g/dL Albumin/Globulin Ratio (1.1-2.2) Urine Color (Yellow) Urine Clarity (Clear) Urine pH (5.0-8.0) pH Units Ur Specific [place] (1.010-1.025) Urine Protein (Neg-Trace) mg/dL Urine Glucose (UA) (Normal) mg/dL Urine Ketones (Negative) mg/dL Urine Blood (Negative) Urine Nitrite (Negative) Urine Bilirubin (Negative) Urine Urobilinogen (Normal) mg/dL Ur Leukocyte Esterase (Negative) Ur Culture Indicated? (NO) Blood Type Antibody Screen Antibody Identification MTS Gel Crossmatch 06/15/17 06/15/17 06/15/17 Range/Units 21:28 21:30 22:10 WBC (4.3-11.1) K/mcL RBC (3.82-4.97) M/mcL Hgb (11.5-15.4) g/dL Hct (35.3-44.9) % MCV (83.0-100.0) fL MCH (28.0-33.3) pg MCHC (31.6-35.5) g/dL RDW (11.5-14.5) % Plt Count (140-400) K/mcL MPV (9.4-12.4) fL Immature Gran % (0-4) % Seg Neutrophils % % Lymphocytes % % Monocytes % % Eosinophils % % Basophils % % Neutrophils # (1.6-8.9) K/mcL Lymphocytes # (0.6-4.6) K/mcL Monocytes # (0.0-1.3) K/mcL Eosinophils # (0.0-0.6) K/mcL Basophils # (0.0-0.2) K/mcL Nucleated RBCs/100 WBC (0) /100 WBC PT (9.4-12.1) Seconds INR APTT (26.0-36.0) Seconds VBG pH (7.32-7.42) pH Units VBG pCO2 (41-51) mmHg VBG pO2 (25-50) mmHg VBG HCO3 (21-27) mEq/L Sodium (136-145) mEq/L Potassium (3.5-4.5) mEq/L Chloride (98-109) mEq/L Carbon Dioxide (19-29) mEq/L BUN (7-20) mg/dL Creatinine (0.57-1.11) mg/dL Est GFR ( Amer) (> 60) Est GFR (Non-Af Amer) (> 60) BUN/Creatinine Ratio (6-26) Glucose (70-99) mg/dL POC Glucose 47 L* 47 L* 125 H (58-89) Calculated Osmolality (280-300) Lactic Acid (0.5-2.2) mmol/L Calcium (8.6-10.8) mg/dL Total Bilirubin (0.2-1.2) mg/dL Direct Bilirubin (0.0-0.5) mg/dL Indirect Bilirubin (0.0-1.2) mg/dL AST (5-34) Units/L ALT (0-55) Units/L Alkaline Phosphatase (38-126) Units/L Troponin I (0-0.03) ng/mL B-Natriuretic Peptide (0-100) pg/mL Serum Total Protein (6.0-8.3) g/dL Albumin (3.5-5.0) g/dL Globulin (2.4-3.5) g/dL Albumin/Globulin Ratio (1.1-2.2) Urine Color (Yellow) Urine Clarity (Clear) Urine pH (5.0-8.0) pH Units Ur Specific [place] (1.010-1.025) Urine Protein (Neg-Trace) mg/dL Urine Glucose (UA) (Normal) mg/dL Urine Ketones (Negative) mg/dL Urine Blood (Negative) Urine Nitrite (Negative) Urine Bilirubin (Negative) Urine Urobilinogen (Normal) mg/dL Ur Leukocyte Esterase (Negative) Ur Culture Indicated? (NO) Blood Type Antibody Screen Antibody Identification MTS Gel Crossmatch 06/16/17 06/16/17 06/16/17 Range/Units 05:10 05:28 05:30 WBC (4.3-11.1) K/mcL RBC (3.82-4.97) M/mcL Hgb 7.6 L (11.5-15.4) g/dL Hct 25.7 L (35.3-44.9) % MCV (83.0-100.0) fL MCH (28.0-33.3) pg MCHC (31.6-35.5) g/dL RDW (11.5-14.5) % Plt Count (140-400) K/mcL MPV (9.4-12.4) fL Immature Gran % (0-4) % Seg Neutrophils % % Lymphocytes % % Monocytes % % Eosinophils % % Basophils % % Neutrophils # (1.6-8.9) K/mcL Lymphocytes # (0.6-4.6) K/mcL Monocytes # (0.0-1.3) K/mcL Eosinophils # (0.0-0.6) K/mcL Basophils # (0.0-0.2) K/mcL Nucleated RBCs/100 WBC (0) /100 WBC PT (9.4-12.1) Seconds INR APTT (26.0-36.0) Seconds VBG pH (7.32-7.42) pH Units VBG pCO2 (41-51) mmHg VBG pO2 (25-50) mmHg VBG HCO3 (21-27) mEq/L Sodium (136-145) mEq/L Potassium (3.5-4.5) mEq/L Chloride (98-109) mEq/L Carbon Dioxide (19-29) mEq/L BUN (7-20) mg/dL Creatinine (0.57-1.11) mg/dL Est GFR ( Amer) (> 60) Est GFR (Non-Af Amer) (> 60) BUN/Creatinine Ratio (6-26) Glucose (70-99) mg/dL POC Glucose 53 L 55 L (58-89) Calculated Osmolality (280-300) Lactic Acid (0.5-2.2) mmol/L Calcium (8.6-10.8) mg/dL Total Bilirubin (0.2-1.2) mg/dL Direct Bilirubin (0.0-0.5) mg/dL Indirect Bilirubin (0.0-1.2) mg/dL AST (5-34) Units/L ALT (0-55) Units/L Alkaline Phosphatase (38-126) Units/L Troponin I (0-0.03) ng/mL B-Natriuretic Peptide (0-100) pg/mL Serum Total Protein (6.0-8.3) g/dL Albumin (3.5-5.0) g/dL Globulin (2.4-3.5) g/dL Albumin/Globulin Ratio (1.1-2.2) Urine Color (Yellow) Urine Clarity (Clear) Urine pH (5.0-8.0) pH Units Ur Specific [place] (1.010-1.025) Urine Protein (Neg-Trace) mg/dL Urine Glucose (UA) (Normal) mg/dL Urine Ketones (Negative) mg/dL Urine Blood (Negative) Urine Nitrite (Negative) Urine Bilirubin (Negative) Urine Urobilinogen (Normal) mg/dL Ur Leukocyte Esterase (Negative) Ur Culture Indicated? (NO) Blood Type Antibody Screen Antibody Identification MTS Gel Crossmatch 06/16/17 06/16/17 06/16/17 Range/Units 06:42 11:32 14:07 WBC (4.3-11.1) K/mcL RBC (3.82-4.97) M/mcL Hgb (11.5-15.4) g/dL Hct (35.3-44.9) % MCV (83.0-100.0) fL MCH (28.0-33.3) pg MCHC (31.6-35.5) g/dL RDW (11.5-14.5) % Plt Count (140-400) K/mcL MPV (9.4-12.4) fL Immature Gran % (0-4) % Seg Neutrophils % % Lymphocytes % % Monocytes % % Eosinophils % % Basophils % % Neutrophils # (1.6-8.9) K/mcL Lymphocytes # (0.6-4.6) K/mcL Monocytes # (0.0-1.3) K/mcL Eosinophils # (0.0-0.6) K/mcL Basophils # (0.0-0.2) K/mcL Nucleated RBCs/100 WBC (0) /100 WBC PT (9.4-12.1) Seconds INR APTT (26.0-36.0) Seconds VBG pH (7.32-7.42) pH Units VBG pCO2 (41-51) mmHg VBG pO2 (25-50) mmHg VBG HCO3 (21-27) mEq/L Sodium (136-145) mEq/L Potassium (3.5-4.5) mEq/L Chloride (98-109) mEq/L Carbon Dioxide (19-29) mEq/L BUN (7-20) mg/dL Creatinine (0.57-1.11) mg/dL Est GFR ( Amer) (> 60) Est GFR (Non-Af Amer) (> 60) BUN/Creatinine Ratio (6-26) Glucose (70-99) mg/dL POC Glucose 140 H 161 H (58-89) Calculated Osmolality (280-300) Lactic Acid (0.5-2.2) mmol/L Calcium (8.6-10.8) mg/dL Total Bilirubin (0.2-1.2) mg/dL Direct Bilirubin (0.0-0.5) mg/dL Indirect Bilirubin (0.0-1.2) mg/dL AST (5-34) Units/L ALT (0-55) Units/L Alkaline Phosphatase (38-126) Units/L Troponin I (0-0.03) ng/mL B-Natriuretic Peptide (0-100) pg/mL Serum Total Protein (6.0-8.3) g/dL Albumin (3.5-5.0) g/dL Globulin (2.4-3.5) g/dL Albumin/Globulin Ratio (1.1-2.2) Urine Color Yellow (Yellow) Urine Clarity Clear (Clear) Urine pH 6.0 (5.0-8.0) pH Units Ur Specific [place] 1.015 (1.010-1.025) Urine Protein Negative (Neg-Trace) mg/dL Urine Glucose (UA) Normal (Normal) mg/dL Urine Ketones Negative (Negative) mg/dL Urine Blood Negative (Negative) Urine Nitrite Negative (Negative) Urine Bilirubin Negative (Negative) Urine Urobilinogen Normal (Normal) mg/dL Ur Leukocyte Esterase Negative (Negative) Ur Culture Indicated? NO (NO) Blood Type Antibody Screen Antibody Identification MTS Gel Crossmatch 06/16/17 06/16/17 06/17/17 Range/Units 16:35 20:37 04:20 WBC 13.3 H (4.3-11.1) K/mcL RBC 2.93 L (3.82-4.97) M/mcL Hgb 7.6 L (11.5-15.4) g/dL Hct 25.3 L (35.3-44.9) % MCV 86.3 (83.0-100.0) fL MCH 25.9 L (28.0-33.3) pg MCHC 30.0 L (31.6-35.5) g/dL RDW 17.3 H (11.5-14.5) % Plt Count 196 (140-400) K/mcL MPV 13.0 H (9.4-12.4) fL Immature Gran % 1.4 (0-4) % Seg Neutrophils % 87.3 % Lymphocytes % 6.5 % Monocytes % 4.4 % Eosinophils % 0.2 % Basophils % 0.2 % Neutrophils # 11.6 H (1.6-8.9) K/mcL Lymphocytes # 0.9 (0.6-4.6) K/mcL Monocytes # 0.6 (0.0-1.3) K/mcL Eosinophils # 0.0 (0.0-0.6) K/mcL Basophils # 0.0 (0.0-0.2) K/mcL Nucleated RBCs/100 WBC 0.2 H (0) /100 WBC PT (9.4-12.1) Seconds INR APTT (26.0-36.0) Seconds VBG pH (7.32-7.42) pH Units VBG pCO2 (41-51) mmHg VBG pO2 (25-50) mmHg VBG HCO3 (21-27) mEq/L Sodium (136-145) mEq/L Potassium (3.5-4.5) mEq/L Chloride (98-109) mEq/L Carbon Dioxide (19-29) mEq/L BUN (7-20) mg/dL Creatinine (0.57-1.11) mg/dL Est GFR ( Amer) (> 60) Est GFR (Non-Af Amer) (> 60) BUN/Creatinine Ratio (6-26) Glucose (70-99) mg/dL POC Glucose 215 H 251 H (58-89) Calculated Osmolality (280-300) Lactic Acid (0.5-2.2) mmol/L Calcium (8.6-10.8) mg/dL Total Bilirubin (0.2-1.2) mg/dL Direct Bilirubin (0.0-0.5) mg/dL Indirect Bilirubin (0.0-1.2) mg/dL AST (5-34) Units/L ALT (0-55) Units/L Alkaline Phosphatase (38-126) Units/L Troponin I (0-0.03) ng/mL B-Natriuretic Peptide (0-100) pg/mL Serum Total Protein (6.0-8.3) g/dL Albumin (3.5-5.0) g/dL Globulin (2.4-3.5) g/dL Albumin/Globulin Ratio (1.1-2.2) Urine Color (Yellow) Urine Clarity (Clear) Urine pH (5.0-8.0) pH Units Ur Specific [place] (1.010-1.025) Urine Protein (Neg-Trace) mg/dL Urine Glucose (UA) (Normal) mg/dL Urine Ketones (Negative) mg/dL Urine Blood (Negative) Urine Nitrite (Negative) Urine Bilirubin (Negative) Urine Urobilinogen (Normal) mg/dL Ur Leukocyte Esterase (Negative) Ur Culture Indicated? (NO) Blood Type Antibody Screen Antibody Identification MTS Gel Crossmatch 06/17/17 06/17/17 06/17/17 Range/Units 04:20 07:42 11:19 WBC (4.3-11.1) K/mcL RBC (3.82-4.97) M/mcL Hgb (11.5-15.4) g/dL Hct (35.3-44.9) % MCV (83.0-100.0) fL MCH (28.0-33.3) pg MCHC (31.6-35.5) g/dL RDW (11.5-14.5) % Plt Count (140-400) K/mcL MPV (9.4-12.4) fL Immature Gran % (0-4) % Seg Neutrophils % % Lymphocytes % % Monocytes % % Eosinophils % % Basophils % % Neutrophils # (1.6-8.9) K/mcL Lymphocytes # (0.6-4.6) K/mcL Monocytes # (0.0-1.3) K/mcL Eosinophils # (0.0-0.6) K/mcL Basophils # (0.0-0.2) K/mcL Nucleated RBCs/100 WBC (0) /100 WBC PT (9.4-12.1) Seconds INR APTT (26.0-36.0) Seconds VBG pH (7.32-7.42) pH Units VBG pCO2 (41-51) mmHg VBG pO2 (25-50) mmHg VBG HCO3 (21-27) mEq/L Sodium 136 (136-145) mEq/L Potassium 4.6 H (3.5-4.5) mEq/L Chloride 101 (98-109) mEq/L Carbon Dioxide 28 (19-29) mEq/L BUN 19 (7-20) mg/dL Creatinine 0.83 (0.57-1.11) mg/dL Est GFR ( Amer) > 60 (> 60) Est GFR (Non-Af Amer) > 60 (> 60) BUN/Creatinine Ratio 23 (6-26) Glucose 311 H (70-99) mg/dL POC Glucose 281 H 388 H (58-89) Calculated Osmolality 296 (280-300) Lactic Acid (0.5-2.2) mmol/L Calcium 8.6 (8.6-10.8) mg/dL Total Bilirubin (0.2-1.2) mg/dL Direct Bilirubin (0.0-0.5) mg/dL Indirect Bilirubin (0.0-1.2) mg/dL AST (5-34) Units/L ALT (0-55) Units/L Alkaline Phosphatase (38-126) Units/L Troponin I (0-0.03) ng/mL B-Natriuretic Peptide (0-100) pg/mL Serum Total Protein (6.0-8.3) g/dL Albumin (3.5-5.0) g/dL Globulin (2.4-3.5) g/dL Albumin/Globulin Ratio (1.1-2.2) Urine Color (Yellow) Urine Clarity (Clear) Urine pH (5.0-8.0) pH Units Ur Specific [place] (1.010-1.025) Urine Protein (Neg-Trace) mg/dL Urine Glucose (UA) (Normal) mg/dL Urine Ketones (Negative) mg/dL Urine Blood (Negative) Urine Nitrite (Negative) Urine Bilirubin (Negative) Urine Urobilinogen (Normal) mg/dL Ur Leukocyte Esterase (Negative) Ur Culture Indicated? (NO) Blood Type Antibody Screen Antibody Identification MTS Gel Crossmatch 06/17/17 06/17/17 06/18/17 Range/Units 16:09 20:02 05:33 WBC (4.3-11.1) K/mcL RBC (3.82-4.97) M/mcL Hgb (11.5-15.4) g/dL Hct (35.3-44.9) % MCV (83.0-100.0) fL MCH (28.0-33.3) pg MCHC (31.6-35.5) g/dL RDW (11.5-14.5) % Plt Count (140-400) K/mcL MPV (9.4-12.4) fL Immature Gran % (0-4) % Seg Neutrophils % % Lymphocytes % % Monocytes % % Eosinophils % % Basophils % % Neutrophils # (1.6-8.9) K/mcL Lymphocytes # (0.6-4.6) K/mcL Monocytes # (0.0-1.3) K/mcL Eosinophils # (0.0-0.6) K/mcL Basophils # (0.0-0.2) K/mcL Nucleated RBCs/100 WBC (0) /100 WBC PT (9.4-12.1) Seconds INR APTT (26.0-36.0) Seconds VBG pH (7.32-7.42) pH Units VBG pCO2 (41-51) mmHg VBG pO2 (25-50) mmHg VBG HCO3 (21-27) mEq/L Sodium (136-145) mEq/L Potassium (3.5-4.5) mEq/L Chloride (98-109) mEq/L Carbon Dioxide (19-29) mEq/L BUN (7-20) mg/dL Creatinine (0.57-1.11) mg/dL Est GFR ( Amer) (> 60) Est GFR (Non-Af Amer) (> 60) BUN/Creatinine Ratio (6-26) Glucose (70-99) mg/dL POC Glucose 365 H 318 H 290 H (58-89) Calculated Osmolality (280-300) Lactic Acid (0.5-2.2) mmol/L Calcium (8.6-10.8) mg/dL Total Bilirubin (0.2-1.2) mg/dL Direct Bilirubin (0.0-0.5) mg/dL Indirect Bilirubin (0.0-1.2) mg/dL AST (5-34) Units/L ALT (0-55) Units/L Alkaline Phosphatase (38-126) Units/L Troponin I (0-0.03) ng/mL B-Natriuretic Peptide (0-100) pg/mL Serum Total Protein (6.0-8.3) g/dL Albumin (3.5-5.0) g/dL Globulin (2.4-3.5) g/dL Albumin/Globulin Ratio (1.1-2.2) Urine Color (Yellow) Urine Clarity (Clear) Urine pH (5.0-8.0) pH Units Ur Specific [place] (1.010-1.025) Urine Protein (Neg-Trace) mg/dL Urine Glucose (UA) (Normal) mg/dL Urine Ketones (Negative) mg/dL Urine Blood (Negative) Urine Nitrite (Negative) Urine Bilirubin (Negative) Urine Urobilinogen (Normal) mg/dL Ur Leukocyte Esterase (Negative) Ur Culture Indicated? (NO) Blood Type Antibody Screen Antibody Identification MTS Gel Crossmatch 06/18/17 06/18/17 06/18/17 Range/Units 06:51 10:56 11:20 WBC 12.2 H (4.3-11.1) K/mcL RBC 3.11 L (3.82-4.97) M/mcL Hgb 8.0 L (11.5-15.4) g/dL Hct 27.1 L (35.3-44.9) % MCV 87.1 (83.0-100.0) fL MCH 25.7 L (28.0-33.3) pg MCHC 29.5 L (31.6-35.5) g/dL RDW 17.6 H (11.5-14.5) % Plt Count 197 (140-400) K/mcL MPV 12.3 (9.4-12.4) fL Immature Gran % 1.2 (0-4) % Seg Neutrophils % 91.5 % Lymphocytes % 4.5 % Monocytes % 2.6 % Eosinophils % 0.1 % Basophils % 0.1 % Neutrophils # 11.2 H (1.6-8.9) K/mcL Lymphocytes # 0.6 (0.6-4.6) K/mcL Monocytes # 0.3 (0.0-1.3) K/mcL Eosinophils # 0.0 (0.0-0.6) K/mcL Basophils # 0.0 (0.0-0.2) K/mcL Nucleated RBCs/100 WBC 0.2 H (0) /100 WBC PT (9.4-12.1) Seconds INR APTT (26.0-36.0) Seconds VBG pH (7.32-7.42) pH Units VBG pCO2 (41-51) mmHg VBG pO2 (25-50) mmHg VBG HCO3 (21-27) mEq/L Sodium (136-145) mEq/L Potassium (3.5-4.5) mEq/L Chloride (98-109) mEq/L Carbon Dioxide (19-29) mEq/L BUN (7-20) mg/dL Creatinine (0.57-1.11) mg/dL Est GFR ( Amer) (> 60) Est GFR (Non-Af Amer) (> 60) BUN/Creatinine Ratio (6-26) Glucose (70-99) mg/dL POC Glucose 293 H 388 H (58-89) Calculated Osmolality (280-300) Lactic Acid (0.5-2.2) mmol/L Calcium (8.6-10.8) mg/dL Total Bilirubin (0.2-1.2) mg/dL Direct Bilirubin (0.0-0.5) mg/dL Indirect Bilirubin (0.0-1.2) mg/dL AST (5-34) Units/L ALT (0-55) Units/L Alkaline Phosphatase (38-126) Units/L Troponin I (0-0.03) ng/mL B-Natriuretic Peptide (0-100) pg/mL Serum Total Protein (6.0-8.3) g/dL Albumin (3.5-5.0) g/dL Globulin (2.4-3.5) g/dL Albumin/Globulin Ratio (1.1-2.2) Urine Color (Yellow) Urine Clarity (Clear) Urine pH (5.0-8.0) pH Units Ur Specific [place] (1.010-1.025) Urine Protein (Neg-Trace) mg/dL Urine Glucose (UA) (Normal) mg/dL Urine Ketones (Negative) mg/dL Urine Blood (Negative) Urine Nitrite (Negative) Urine Bilirubin (Negative) Urine Urobilinogen (Normal) mg/dL Ur Leukocyte Esterase (Negative) Ur Culture Indicated? (NO) Blood Type Antibody Screen Antibody Identification MTS Gel Crossmatch 06/18/17 06/18/17 06/18/17 Range/Units 11:20 16:33 20:22 WBC (4.3-11.1) K/mcL RBC (3.82-4.97) M/mcL Hgb (11.5-15.4) g/dL Hct (35.3-44.9) % MCV (83.0-100.0) fL MCH (28.0-33.3) pg MCHC (31.6-35.5) g/dL RDW (11.5-14.5) % Plt Count (140-400) K/mcL MPV (9.4-12.4) fL Immature Gran % (0-4) % Seg Neutrophils % % Lymphocytes % % Monocytes % % Eosinophils % % Basophils % % Neutrophils # (1.6-8.9) K/mcL Lymphocytes # (0.6-4.6) K/mcL Monocytes # (0.0-1.3) K/mcL Eosinophils # (0.0-0.6) K/mcL Basophils # (0.0-0.2) K/mcL Nucleated RBCs/100 WBC (0) /100 WBC PT (9.4-12.1) Seconds INR APTT (26.0-36.0) Seconds VBG pH (7.32-7.42) pH Units VBG pCO2 (41-51) mmHg VBG pO2 (25-50) mmHg VBG HCO3 (21-27) mEq/L Sodium 136 (136-145) mEq/L Potassium 4.4 (3.5-4.5) mEq/L Chloride 98 (98-109) mEq/L Carbon Dioxide 29 (19-29) mEq/L BUN 20 (7-20) mg/dL Creatinine 0.94 (0.57-1.11) mg/dL Est GFR ( Amer) > 60 (> 60) Est GFR (Non-Af Amer) 59 L (> 60) BUN/Creatinine Ratio 21 (6-26) Glucose 386 H (70-99) mg/dL POC Glucose 348 H 332 H (58-89) Calculated Osmolality 301 H (280-300) Lactic Acid (0.5-2.2) mmol/L Calcium 8.9 (8.6-10.8) mg/dL Total Bilirubin (0.2-1.2) mg/dL Direct Bilirubin (0.0-0.5) mg/dL Indirect Bilirubin (0.0-1.2) mg/dL AST (5-34) Units/L ALT (0-55) Units/L Alkaline Phosphatase (38-126) Units/L Troponin I (0-0.03) ng/mL B-Natriuretic Peptide (0-100) pg/mL Serum Total Protein (6.0-8.3) g/dL Albumin (3.5-5.0) g/dL Globulin (2.4-3.5) g/dL Albumin/Globulin Ratio (1.1-2.2) Urine Color (Yellow) Urine Clarity (Clear) Urine pH (5.0-8.0) pH Units Ur Specific [place] (1.010-1.025) Urine Protein (Neg-Trace) mg/dL Urine Glucose (UA) (Normal) mg/dL Urine Ketones (Negative) mg/dL Urine Blood (Negative) Urine Nitrite (Negative) Urine Bilirubin (Negative) Urine Urobilinogen (Normal) mg/dL Ur Leukocyte Esterase (Negative) Ur Culture Indicated? (NO) Blood Type Antibody Screen Antibody Identification MTS Gel Crossmatch 06/19/17 06/19/17 06/19/17 Range/Units 06:24 06:24 06:24 WBC 12.7 H (4.3-11.1) K/mcL RBC 3.18 L (3.82-4.97) M/mcL Hgb 8.1 L (11.5-15.4) g/dL Hct 27.6 L (35.3-44.9) % MCV 86.8 (83.0-100.0) fL MCH 25.5 L (28.0-33.3) pg MCHC 29.3 L (31.6-35.5) g/dL RDW 17.6 H (11.5-14.5) % Plt Count 189 (140-400) K/mcL MPV 12.9 H (9.4-12.4) fL Immature Gran % 1.2 (0-4) % Seg Neutrophils % 85.3 % Lymphocytes % 7.0 % Monocytes % 6.3 % Eosinophils % 0.1 % Basophils % 0.1 % Neutrophils # 10.8 H (1.6-8.9) K/mcL Lymphocytes # 0.9 (0.6-4.6) K/mcL Monocytes # 0.8 (0.0-1.3) K/mcL Eosinophils # 0.0 (0.0-0.6) K/mcL Basophils # 0.0 (0.0-0.2) K/mcL Nucleated RBCs/100 WBC 0.2 H (0) /100 WBC PT (9.4-12.1) Seconds INR APTT (26.0-36.0) Seconds VBG pH (7.32-7.42) pH Units VBG pCO2 (41-51) mmHg VBG pO2 (25-50) mmHg VBG HCO3 (21-27) mEq/L Sodium 135 L (136-145) mEq/L Potassium 4.4 (3.5-4.5) mEq/L Chloride 100 (98-109) mEq/L Carbon Dioxide 27 (19-29) mEq/L BUN 25 H (7-20) mg/dL Creatinine 0.87 (0.57-1.11) mg/dL Est GFR ( Amer) > 60 (> 60) Est GFR (Non-Af Amer) > 60 (> 60) BUN/Creatinine Ratio 29 H (6-26) Glucose 332 H (70-99) mg/dL POC Glucose (58-89) Calculated Osmolality 297 (280-300) Lactic Acid (0.5-2.2) mmol/L Calcium 9.0 (8.6-10.8) mg/dL Total Bilirubin (0.2-1.2) mg/dL Direct Bilirubin (0.0-0.5) mg/dL Indirect Bilirubin (0.0-1.2) mg/dL AST (5-34) Units/L ALT (0-55) Units/L Alkaline Phosphatase (38-126) Units/L Troponin I 0.01 (0-0.03) ng/mL B-Natriuretic Peptide (0-100) pg/mL Serum Total Protein (6.0-8.3) g/dL Albumin (3.5-5.0) g/dL Globulin (2.4-3.5) g/dL Albumin/Globulin Ratio (1.1-2.2) Urine Color (Yellow) Urine Clarity (Clear) Urine pH (5.0-8.0) pH Units Ur Specific [place] (1.010-1.025) Urine Protein (Neg-Trace) mg/dL Urine Glucose (UA) (Normal) mg/dL Urine Ketones (Negative) mg/dL Urine Blood (Negative) Urine Nitrite (Negative) Urine Bilirubin (Negative) Urine Urobilinogen (Normal) mg/dL Ur Leukocyte Esterase (Negative) Ur Culture Indicated? (NO) Blood Type Antibody Screen Antibody Identification MTS Gel Crossmatch 06/19/17 06/19/17 06/19/17 Range/Units 07:08 11:24 11:25 WBC (4.3-11.1) K/mcL RBC (3.82-4.97) M/mcL Hgb (11.5-15.4) g/dL Hct (35.3-44.9) % MCV (83.0-100.0) fL MCH (28.0-33.3) pg MCHC (31.6-35.5) g/dL RDW (11.5-14.5) % Plt Count (140-400) K/mcL MPV (9.4-12.4) fL Immature Gran % (0-4) % Seg Neutrophils % % Lymphocytes % % Monocytes % % Eosinophils % % Basophils % % Neutrophils # (1.6-8.9) K/mcL Lymphocytes # (0.6-4.6) K/mcL Monocytes # (0.0-1.3) K/mcL Eosinophils # (0.0-0.6) K/mcL Basophils # (0.0-0.2) K/mcL Nucleated RBCs/100 WBC (0) /100 WBC PT (9.4-12.1) Seconds INR APTT (26.0-36.0) Seconds VBG pH (7.32-7.42) pH Units VBG pCO2 (41-51) mmHg VBG pO2 (25-50) mmHg VBG HCO3 (21-27) mEq/L Sodium (136-145) mEq/L Potassium (3.5-4.5) mEq/L Chloride (98-109) mEq/L Carbon Dioxide (19-29) mEq/L BUN (7-20) mg/dL Creatinine (0.57-1.11) mg/dL Est GFR ( Amer) (> 60) Est GFR (Non-Af Amer) (> 60) BUN/Creatinine Ratio (6-26) Glucose (70-99) mg/dL POC Glucose 320 H 488 H* 480 H* (58-89) Calculated Osmolality (280-300) Lactic Acid (0.5-2.2) mmol/L Calcium (8.6-10.8) mg/dL Total Bilirubin (0.2-1.2) mg/dL Direct Bilirubin (0.0-0.5) mg/dL Indirect Bilirubin (0.0-1.2) mg/dL AST (5-34) Units/L ALT (0-55) Units/L Alkaline Phosphatase (38-126) Units/L Troponin I (0-0.03) ng/mL B-Natriuretic Peptide (0-100) pg/mL Serum Total Protein (6.0-8.3) g/dL Albumin (3.5-5.0) g/dL Globulin (2.4-3.5) g/dL Albumin/Globulin Ratio (1.1-2.2) Urine Color (Yellow) Urine Clarity (Clear) Urine pH (5.0-8.0) pH Units Ur Specific [place] (1.010-1.025) Urine Protein (Neg-Trace) mg/dL Urine Glucose (UA) (Normal) mg/dL Urine Ketones (Negative) mg/dL Urine Blood (Negative) Urine Nitrite (Negative) Urine Bilirubin (Negative) Urine Urobilinogen (Normal) mg/dL Ur Leukocyte Esterase (Negative) Ur Culture Indicated? (NO) Blood Type Antibody Screen Antibody Identification MTS Gel Crossmatch 06/19/17 06/19/17 06/19/17 Range/Units 16:29 16:30 21:03 WBC (4.3-11.1) K/mcL RBC (3.82-4.97) M/mcL Hgb (11.5-15.4) g/dL Hct (35.3-44.9) % MCV (83.0-100.0) fL MCH (28.0-33.3) pg MCHC (31.6-35.5) g/dL RDW (11.5-14.5) % Plt Count (140-400) K/mcL MPV (9.4-12.4) fL Immature Gran % (0-4) % Seg Neutrophils % % Lymphocytes % % Monocytes % % Eosinophils % % Basophils % % Neutrophils # (1.6-8.9) K/mcL Lymphocytes # (0.6-4.6) K/mcL Monocytes # (0.0-1.3) K/mcL Eosinophils # (0.0-0.6) K/mcL Basophils # (0.0-0.2) K/mcL Nucleated RBCs/100 WBC (0) /100 WBC PT (9.4-12.1) Seconds INR APTT (26.0-36.0) Seconds VBG pH (7.32-7.42) pH Units VBG pCO2 (41-51) mmHg VBG pO2 (25-50) mmHg VBG HCO3 (21-27) mEq/L Sodium (136-145) mEq/L Potassium (3.5-4.5) mEq/L Chloride (98-109) mEq/L Carbon Dioxide (19-29) mEq/L BUN (7-20) mg/dL Creatinine (0.57-1.11) mg/dL Est GFR ( Amer) (> 60) Est GFR (Non-Af Amer) (> 60) BUN/Creatinine Ratio (6-26) Glucose (70-99) mg/dL POC Glucose 408 H* 430 H* 310 H (58-89) Calculated Osmolality (280-300) Lactic Acid (0.5-2.2) mmol/L Calcium (8.6-10.8) mg/dL Total Bilirubin (0.2-1.2) mg/dL Direct Bilirubin (0.0-0.5) mg/dL Indirect Bilirubin (0.0-1.2) mg/dL AST (5-34) Units/L ALT (0-55) Units/L Alkaline Phosphatase (38-126) Units/L Troponin I (0-0.03) ng/mL B-Natriuretic Peptide (0-100) pg/mL Serum Total Protein (6.0-8.3) g/dL Albumin (3.5-5.0) g/dL Globulin (2.4-3.5) g/dL Albumin/Globulin Ratio (1.1-2.2) Urine Color (Yellow) Urine Clarity (Clear) Urine pH (5.0-8.0) pH Units Ur Specific [place] (1.010-1.025) Urine Protein (Neg-Trace) mg/dL Urine Glucose (UA) (Normal) mg/dL Urine Ketones (Negative) mg/dL Urine Blood (Negative) Urine Nitrite (Negative) Urine Bilirubin (Negative) Urine Urobilinogen (Normal) mg/dL Ur Leukocyte Esterase (Negative) Ur Culture Indicated? (NO) Blood Type Antibody Screen Antibody Identification MTS Gel Crossmatch 06/20/17 Range/Units 01:51 WBC (4.3-11.1) K/mcL RBC (3.82-4.97) M/mcL Hgb (11.5-15.4) g/dL Hct (35.3-44.9) % MCV (83.0-100.0) fL MCH (28.0-33.3) pg MCHC (31.6-35.5) g/dL RDW (11.5-14.5) % Plt Count (140-400) K/mcL MPV (9.4-12.4) fL Immature Gran % (0-4) % Seg Neutrophils % % Lymphocytes % % Monocytes % % Eosinophils % % Basophils % % Neutrophils # (1.6-8.9) K/mcL Lymphocytes # (0.6-4.6) K/mcL Monocytes # (0.0-1.3) K/mcL Eosinophils # (0.0-0.6) K/mcL Basophils # (0.0-0.2) K/mcL Nucleated RBCs/100 WBC (0) /100 WBC PT (9.4-12.1) Seconds INR APTT (26.0-36.0) Seconds VBG pH (7.32-7.42) pH Units VBG pCO2 (41-51) mmHg VBG pO2 (25-50) mmHg VBG HCO3 (21-27) mEq/L Sodium (136-145) mEq/L Potassium (3.5-4.5) mEq/L Chloride (98-109) mEq/L Carbon Dioxide (19-29) mEq/L BUN (7-20) mg/dL Creatinine (0.57-1.11) mg/dL Est GFR ( Amer) (> 60) Est GFR (Non-Af Amer) (> 60) BUN/Creatinine Ratio (6-26) Glucose (70-99) mg/dL POC Glucose 186 H (58-89) Calculated Osmolality (280-300) Lactic Acid (0.5-2.2) mmol/L Calcium (8.6-10.8) mg/dL Total Bilirubin (0.2-1.2) mg/dL Direct Bilirubin (0.0-0.5) mg/dL Indirect Bilirubin (0.0-1.2) mg/dL AST (5-34) Units/L ALT (0-55) Units/L Alkaline Phosphatase (38-126) Units/L Troponin I (0-0.03) ng/mL B-Natriuretic Peptide (0-100) pg/mL Serum Total Protein (6.0-8.3) g/dL Albumin (3.5-5.0) g/dL Globulin (2.4-3.5) g/dL Albumin/Globulin Ratio (1.1-2.2) Urine Color (Yellow) Urine Clarity (Clear) Urine pH (5.0-8.0) pH Units Ur Specific [place] (1.010-1.025) Urine Protein (Neg-Trace) mg/dL Urine Glucose (UA) (Normal) mg/dL Urine Ketones (Negative) mg/dL Urine Blood (Negative) Urine Nitrite (Negative) Urine Bilirubin (Negative) Urine Urobilinogen (Normal) mg/dL Ur Leukocyte Esterase (Negative) Ur Culture Indicated? (NO) Blood Type Antibody Screen Antibody Identification MTS Gel Crossmatch Date of admission: 06/14/17 20:30 Primary care physician: Huang Najera MD Consults: 06/19/17 07:19 Consult to Occupational Therapy [CONS] Routine Comment: Evaluate, develop and implement POC Reason for Consult: Eval and treat for deconditioning, regain ADLs etc Consult to Physical Therapy [CONS] Routine Comment: Evaluate, develop and implement POC Reason for Consult: Eval and treat for deconditioning and regain ADLs Discharging clinician: Huang Najera Anticipated date of discharge: 06/20/17 - Patient Status Disposition: Transfer SNF Condition: Fair Functional capacity at discharge: uses cane/walker Overall status at discharge: patient is not back to baseline - Discharge Instructions Follow Up With: Huang Najera MD [Primary Care Provider] - - Diet and Activity Activity: as per physical therapy Diet: diabetic diet, low salt diet Interval History: Patient denies any chest pain or shortness of breath this morning. She says she wants to go home. We discussed detention placement she understands. No acute or different symptoms as of this morning. Hospital course: Ms. Light is a 66 year old female admitted with life-threatening anemia with congestive heart failure and bronchitis. Please see the above diagnoses. - Time Spent with Patient Total time spent providing and/or coordinating discharge services: - Constitutional Vitals: Temp Pulse Resp BP Pulse Ox 97.8 F 62 16 138/78 94 06/20/17 07:34 06/20/17 07:34 06/20/17 07:34 06/20/17 07:34 06/20/17 07:34 General appearance: Present: A&O X 3, morbidly obese, pleasant, no acute distress - Respiratory Additional comments: She has a few scattered rhonchi. No wheezing. No rales. She does become easily dyspneic when even taking a couple steps. She does have a loose cough. - Cardiovascular Cardiovascular exam: Present: distant heart sounds, RRR, +S1, +S2 - GI/Abdominal GI/Abdominal exam: Present: soft. Absent: tenderness - Extremities Exam Additional comments: X stockings are in place. No significant edema. 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 ( previous history of bed bugs but none have been noted in office visits or in this hospital stay for the past few months. - Neurological Exam Additional comments: She moves all of her extremities appropriately when tested in bed. I did not check her gait as she can only take 1 or 2 steps. She needs lots of assistance with her ADLs. - VTE Reasons for not Prescribing Prophylaxis: Medical contraindication Documentation of Mechanical Device: Graduated compression elastic hosiery
--- NOTE | 2017-06-20 10:51 | Physician Discharge Referral ---
ExtendedCare Referral Info [facility] To: [facility] Provider in Charge: Deisy Institutional Level of Care: Skilled - Diagnosis (1) Anemia Status: Acute (2) Congestive heart failure Status: Resolved (3) Lactic acidosis Status: Resolved (4) Acute bronchitis Status: Acute (5) History of stroke Status: Chronic (6) Paroxysmal atrial fibrillation Status: Chronic (7) DM2 (diabetes mellitus, type 2) Status: Chronic (8) HTN (hypertension) Status: Chronic (9) COPD (chronic obstructive pulmonary disease) Status: Chronic (10) Physical deconditioning Status: Acute - Transfer Medications Home Medications: Albuterol Neb [AccuNeb] 0.63 mg IH Q4HR PRN 12/03/15 [History] Albuterol Sulfate [Proair Hfa] 2 puff IH Q4HR PRN 12/03/15 [History] Baclofen 10 mg PO TID PRN 12/03/15 [History] Folic Acid 1 mg PO DAILY 12/03/15 [History] Gabapentin [Neurontin] 600 mg PO HS 12/03/15 [History] Metoprolol Tartrate [Lopressor] 12.5 mg PO BID 12/03/15 [History] Nitroglycerin [Nitrostat] 0.4 mg SL PRN PRN 12/03/15 [History] Omeprazole [PriLOSEC] 20 mg PO DAILY 12/03/15 [History] metFORMIN [Glucophage] 1,000 mg PO BIDWM 12/03/15 [History] Budesonide/Formoterol 160/4.5 [Symbicort 160/4.5] 2 puff IH BIDR 12/04/15 [ History] Ergocalciferol (VITAMIN D2) [Drisdol (50,000 Unit)] 50,000 unit PO QWEEK capsule 12/09/15 [Rx] Apixaban [Eliquis] 5 mg PO BID #60 tablet 03/28/16 [Rx] Ferrous Gluconate 324 mg PO BID 06/14/17 [History] Lisinopril [Zestril] 20 mg PO DAILY 06/14/17 [History] Magnesium Oxide 400 mg PO DAILY 06/14/17 [History] Diltiazem CD (24hr) [Cardizem CD] 180 mg PO DAILY 06/15/17 [History] Docusate [Colace] 100 mg PO DAILY 06/15/17 [History] FLUoxetine HCl [Prozac] 20 mg PO DAILY 06/15/17 [History] Furosemide [Lasix] 40 mg PO DAILY 06/15/17 [History] Insulin DETEMIR [Levemir] 50 unit SQ HS 06/15/17 [History] Loratadine [Claritin] 10 mg PO DAILY PRN 06/15/17 [History] Acetaminophen [Tylenol] 650 mg PO Q6HR PRN tablet 06/20/17 [Rx] Furosemide [Lasix] 40 mg PO DAILY tablet 06/20/17 [Rx] Insulin DETEMIR [Levemir] 25 unit SQ HS a3rarsf 06/20/17 [Rx] Insulin DETEMIR [Levemir] 50 unit SQ 0800 #0 06/20/17 [Rx] Insulin LISPRO [HumaLOG] 0 units SQ HS vial 06/20/17 [Rx] Insulin LISPRO [HumaLOG] 0 units SQ TIDAC vial 06/20/17 [Rx] Nystatin POWDER [Nystop] 1 appl TP TID bottle 06/20/17 [Rx] Allergies/Adverse Reactions: 3 Allergy/AdvReac Type Severity Reaction Status Date / Time ciprofloxacin Allergy Hives Verified 06/14/17 21:13 iodine Allergy See Verified 06/14/17 21:13 Comments promethazine [From Phenergan] Allergy See Verified 06/14/17 21:13 Comments Sulfa (Sulfonamide Allergy See Verified 06/14/17 21:13 Antibiotics) Comments walnut Allergy See Verified 06/14/17 21:13 Comments seafood Allergy See Uncoded 06/14/17 21:13 Comments - Respiratory Orders Oxygen / L per min (PRN) Smoking Cessation: Smoking cessation has been advised. For more information, call the [place] Tobacco Quit Line at 6-199-KIGH-NOW. - Ancillary Orders May use pressure relief devices daily prn, May go on PAM w/family/respon libertarian w /meds at nurse discretion PRN, May consult with Dentist, Scutcher Tender, Office Machine Servicer PRN - Advance Directives Code Status: Full Code - Mobility Orders Ambulate (with walker and assistance) - Rehabiliation Orders Rehab Potential: Good Rehab Orders: ROM Exercises, Evaluation for Physical Therapy, Evaluation for Occupational Therapy - Treatments Skin tear care topically daily PRN per policy - Diet Orders No Added Salt (DOC), No Concentrated Sweets CERTIFICATION: I certify that the transfer of the above named patient to an Extended Care Facility is necessary for the continuing treatment of the diagnosis listed. The above information is true and accurate reflection of patient's current condition. Confidential - Redisclosure prohibited without a patient's written consent.
[2017-06-20] MEDS: Nystatin POWDER 30 GM BOTTLE TP SCH (11:09)
[2017-06-20] MEDS: Insulin DETEMIR 100 UNIT/ML X5UNITS SQ SCH (11:09)
--- NOTE | 2017-06-20 18:33 | Electrocardiograph Report ---
[place] [id number] Test Date: 2017-06-18 Pat Name: Nadira Light Department: 2001 Room: 111 Gender: F Turbine Technician: : 1950 Requested By: Huang Najera Order Number: [id number] Reading MD: Haile Schwartz DO Measurements Intervals [place] Rate: 65 P: 44 KS: 142 QRS: 5 QRSD: 98 T: 34 QT: 401 QTc: 413 Interpretive Statements SINUS RHYTHM Electronically Signed On 06-20-2017 18:31:11 EST by Haile Schwartz DO
== END 2017-06-20 14:45 | DRG 812 ==
LOC: INPGRE 17:13 → EMEROOGRE 17:13 → INPGRE 20:36
PROVIDERS: ADMIT Family Medicine; ATTEND Family Medicine